=== PATIENT | female | born 1970 | race Caucasian/White ===

== ENCOUNTER 2017-02-14 11:53 | Emergency (ER) | payer SELFPAY ==
[2017-02-14] MEDS ORDERED: OXYCODONE-ACETAMINOPHEN 5-325 MG TABLET PO ONE (14:44)
--- NOTE | 2017-02-14 14:47 | ER Document Report ---
HPI - HPI Patient complains to provider of: left hip pain Onset: Last week Onset/Duration: Persistent Quality of pain: Sharp Pain Level: 5 Context: Patient states that she stepped off of a ladder wrong last week injury her left hip. Patient complains of persistent left hip pain since then. Associated Symptoms: Other - Left hip pain Exacerbated by: Standing, Movement, Walking Relieved by: Denies Similar symptoms previously: No Recently seen / treated by doctor: No - ROS ROS below otherwise negative: Yes Systems Reviewed and Negative: Yes All other systems reviewed and negative - CONSTITUTIONAL Constitutional: DENIES: Fever, Chills - NEURO Neurology: DENIES: Weakness - GASTROINTESTINAL Gastrointestinal: DENIES: Nausea - REPRODUCTIVE Reproductive: DENIES: : - MUSCULOSKELETAL Musculoskeletal: REPORTS: Extremity pain. DENIES: Back Pain, Neck Pain - DERM Skin Color: Normal Skin Problems: None Past Medical History - General Information source: Patient - Social History Smoking Status: Current Every Day Smoker Frequency of alcohol use: None Drug Abuse: Marijuana Occupation: cleaning Family History: Reviewed & Not Pertinent, DM - Mother Patient has suicidal ideation: No Patient has homicidal ideation: No - Past Medical History Cardiac Medical History: Reports: Hx Hypertension Pulmonary Medical History: Reports: Hx COPD Renal/ Medical History: Denies: Hx Peritoneal Dialysis GI Medical History: Reports: Hx Hiatal Hernia, Hx Ulcer Musculoskeltal Medical History: Reports Hx Arthritis, Reports Hx Fibromyalgia Psychiatric Medical History: Reports: Hx Anxiety, Hx Bipolar Disorder, Hx Depression Past Surgical History: Reports: Hx Section, Hx Cholecystectomy - Immunizations Hx Diphtheria, Pertussis, Tetanus Vaccination: Yes Hx Pneumococcal Vaccination: 07/17/15 Vertical Provider Document - CONSTITUTIONAL Agree With Documented VS: Yes Exam Limitations: No Limitations General Appearance: WD/WN, No Apparent Distress - INFECTION CONTROL TRAVEL OUTSIDE OF THE [place] IN LAST 30 DAYS: No - HEENT HEENT: Atraumatic, Normocephalic - NECK Neck: Normal Inspection - RESPIRATORY Respiratory: Breath Sounds Normal, No Respiratory Distress O2 Sat by Pulse Oximetry: 100 - CARDIOVASCULAR Cardiovascular: Regular Rate, Regular Rhythm - BACK Back: Normal Inspection. negative: CVA Tenderness-Right, CVA Tenderness-Left - MUSCULOSKELETAL/EXTREMETIES Musculoskeletal/Extremeties: Tender - Left hip tenderness with range of motion, tenderness increases with flexion, abduction. negative: Eccymosis - NEURO Level of Consciousness: Awake, Alert, Appropriate Motor/Sensory: No Motor Deficit, No Sensory Deficit - DERM Integumentary: Warm, Dry, No Rash Course - Vital Signs Vital signs: Temp Pulse Resp BP Pulse Ox 97.6 F 70 16 150/93 H 100 02/14/17 12:50 02/14/17 12:50 02/14/17 12:50 02/14/17 12:50 02/14/17 12:50 - Diagnostic Test Radiology reviewed: Reports reviewed Discharge - Discharge Clinical Impression: Elevated blood pressure reading Hip sprain Qualifiers: Encounter type: initial encounter Laterality: left Qualified Code(s): S73.102A - Unspecified sprain of left hip, initial encounter Condition: Stable Disposition: HOME, SELF-CARE Instructions: Ice Packs ([facility]), Warm Packs ([facility]), Oral Narcotic Medication ([facility]) , Use of Crutches ([facility]), Sprain ([facility]) Additional Instructions: Return immediately for any new or worsening symptoms Your blood pressure was elevated today, recheck with your primary doctor in 1-2 days to have this reevaluated Follow-up with an orthopedic Dr. for further evaluation of hip pain. Weightbearing as tolerated Prescriptions: Oxycodone HCl/Acetaminophen [Percocet 5-325 mg Tablet] 1 tab PO ASDIR PRN #15 tablet PRN Reason: Forms: Return to Work Referrals: [facility] [Provider Group] - Follow up tomorrow [facility] [Provider Group] - Follow up tomorrow
[2017-02-14 17:17] VITALS: BP 155/85
== END 2017-02-14 17:19 | disposition home or self-care (01) ==
LOC: ER 11:53
DX: S73.102A Unspecified sprain of left hip, initial encounter (principal); M25.552 Pain in left hip; X58.XXXA Exposure to other specified factors, initial encounter; I10 Essential (primary) hypertension; F17.200 Nicotine dependence, unspecified, uncomplicated; J44.9 Chronic obstructive pulmonary disease, unspecified
CPT/HCPCS: 81025; 99283

== ENCOUNTER 2017-09-02 02:36 | Emergency (ER) | payer SELFPAY ==
--- NOTE | 2017-09-02 02:51 | ER Document Report ---
ED General - General Mode of Arrival: Ambulatory Information source: Patient, Relative TRAVEL OUTSIDE OF THE [place] IN LAST 30 DAYS: No <SARAN COY - Last Filed: 09/02/17 04:44> <GIA SUAREZ - Last Filed: 09/02/17 05:38> - General Chief Complaint: Laceration Stated Complaint: LEFT ARM INJURY Time Seen by Provider: 09/02/17 02:39 - HPI Notes: 47-year-old female presents with laceration to her dorsal left forearm. She is a self-declared "cutter". She states she was very angry but would not elaborate further and therefore cut her arm. She does become tearful and states that she is dealing with severe pain issues mostly related to her fibromyalgia. She denies suicidal ideation but when I asked her daughter if she feels safe with her being at home the daughter states she is not safe and is concerned about this. Patient denies any distal numbness or tingling. Denies any other acute problem. Does admit to alcohol use. (SARAN COY) - Related Data Allergies/Adverse Reactions: cephalexin Allergy (Severe, Verified 02/14/17 12:48) Hives sulfamethoxazole [From Septra] Allergy (Verified 02/14/17 12:48) trimethoprim [From Junra] Allergy (Verified 02/14/17 12:48) Past Medical History - Social History Smoking Status: Current Every Day Smoker Family History: Reviewed & Not Pertinent, DM - Mother - Past Medical History Cardiac Medical History: Reports: Hx Hypertension Pulmonary Medical History: Reports: Hx COPD Renal/ Medical History: Denies: Hx Peritoneal Dialysis GI Medical History: Reports: Hx Hiatal Hernia, Hx Ulcer Musculoskeltal Medical History: Reports Hx Arthritis, Reports Hx Fibromyalgia Psychiatric Medical History: Reports: Hx Anxiety, Hx Bipolar Disorder, Hx Depression Past Surgical History: Reports: Hx Section, Hx Cholecystectomy - Immunizations Hx Diphtheria, Pertussis, Tetanus Vaccination: Yes Hx Pneumococcal Vaccination: 07/17/15 <SARAN COY - Last Filed: 09/02/17 04:44> Review of Systems - Review of Systems -: Yes All other systems reviewed and negative - Reports generalized pain. No specific chest pain or acute dyspnea. <SARAN COY - Last Filed: 09/02/17 04:44> Physical Exam <SARAN COY - Last Filed: 09/02/17 04:44> <GIA SUAREZ - Last Filed: 09/02/17 05:38> - Notes Notes: GENERAL: VS as per nursing doc. Well-appearing, well-nourished somewhat unkempt. Appears somewhat agitated with pressured speech. Grossly appears intoxicated. Odor of tobacco products noted HEAD: Atraumatic, normocephalic EYES: Pupils equal round and reactive to light, extraocular movements intact with fatiguing horizontal nystagmus, sclera anicteric, no conjunctival injection or discharge. ENT: Nares patent, oropharynx clear without exudates, moist mucous membranes. NECK: Normal range of motion, supple without lymphadenopathy. LUNGS: Breath sounds decreased bilaterally coarse with mild wheezing HEART: Tachycardic but regular without murmurs. Peripheral pulses equal. ABDOMEN: Soft, non-tender. BACK: Normal to inspection EXTREMITIES: Normal appearance without edema. There is a laceration as described below to the dorsal left forearm. Neurovascularly intact distally. NEUROLOGICAL: Cranial nerves grossly intact. Normal speech. Normal sensory and motor exams. No gross cerebellar abnormalities. PSYCH: Oriented 3. Directable but agitated with increased psychomotor agitation. No evidence of hallucinations or delusions. No reported suicidal or homicidal ideation. Speech is pressured. Slight flight of ideas requiring redirection. Becomes tearful during interview talking about how she is tired of hurting and her chronic medical conditions. SKIN: Warm, dry. 5 cm linear laceration over the mid to distal left forearm. There is mild separation. Neurovascularly intact distally. No active bleeding. (SARAN COY) Course <SARAN COY - Last Filed: 09/02/17 04:44> <RIMAGIA LONG - Last Filed: 09/02/17 05:38> - Re-evaluation Re-evalutation: 09/02/17 04:08 I was informed it appeared the patient had dumped her urine out and had gotten water for her urine specimen. UA findings appear consistent with that with the specific gravity 1.001. 09/02/17 04:44 Patient became very belligerent and threatening demanding to leave. With her acts as well her verbiage of being tired of life somewhat insinuating she would rather be , she will require a psychiatric evaluation and did require chemical sedation. (SARAN COY) - Laboratory Laboratory results interpreted by me: 09/02/17 03:11 Urine Blood SMALL H Procedures - Laceration/Wound Repair left forearm Wound length (cm): 4 Wound's Depth, Shape: Linear Laceration pre-procedure: Sterile PPE donned, Shur-Clens applied - surgical cleanser Volume Anesthetic (mLs): 3 Wound explored: Clean Irrigated w/ Saline (mLs): 40 Wound Repaired With: Sutures Suture Size/Type: 4:0, Nylon Number of Sutures: 6 Layer Closure?: No Post-procedure NV exam normal: Yes Complications: No <GIA SUAREZ - Last Filed: 09/02/17 05:38>
[2017-09-02] MEDS ORDERED: LIDOCAINE 1% INJ-PF (10 MG/ML) 30 ML SDV INJ ONE (02:53)
[2017-09-02] MEDS ORDERED: ZIPRASIDONE MESYLATE INJ/PF 20 MG SDV IM PRN (03:08)
[2017-09-02 03:29] LABS: APPEARANCE,URINE CLEAR; BILIRUBIN,URINE NEGATIVE (NEGATIVE); GLUCOSE, URINE NEGATIVE (NEGATIVE); KETONES,URINE NEGATIVE (NEGATIVE); LEUKOCYTE ESTERASE,URINE NEGATIVE (NEGATIVE); NITRITE,URINE NEGATIVE (NEGATIVE); PROTEIN,URINE NEGATIVE (NEGATIVE); URINE SPECIFIC GRAVITY 1.001; UROBILINOGEN,URINE NEGATIVE mg/dL (<2.0)
[2017-09-02 03:43] LABS: URINE BARBITURATES SCREEN NEGATIVE; URINE METHADONE SCREEN NEGATIVE; URINE OPIATES LOW NEGATIVE; URINE PHENCYCLIDINE SCREEN NEGATIVE
[2017-09-02 08:28] LABS: ABSOLUTE BASOPHILS # (AUTO) 0.1 10^3/uL (0.0-0.2); ABSOLUTE EOSINOPHILS # (AUTO) 0.1 10^3/uL (0.0-0.6); ABSOLUTE LYMPHOCYTES (AUTO) 3.7 10^3/uL (0.5-4.7); ABSOLUTE MONOCYTES (AUTO) 0.2 10^3/uL (0.1-1.4); ABSOLUTE NEUT (AUTO) 5.1 10^3/uL (1.7-8.2); BASOPHILS % (AUTO) 1.1 % (0-2); EOSINOPHILS % (AUTO) 1.6 % (0-6); HEMOGLOBIN 14.3 g/dL (12.0-15.5); HGB HCT DIFFERENCE 1.9; LYMPHOCYTES % (AUTO) 39.8 % (13-45); MEAN CORPUSCULAR HEMOGLOBIN 31.1 pg (27.0-33.4); MEAN CORPUSCULAR HGB CONC 34.8 g/dL (32.0-36.0); MEAN CORPUSCULAR VOLUME 89 fl (80-97); MONOCYTES % (AUTO) 2.6 % (3-13); RED BLOOD COUNT 4.59 10^6/uL (3.72-5.28); RED CELL DISTRIBUTION WIDTH 13.4 % (11.5-14.0); SEGMENTED NEUTROPHILS % (AUTO) 54.9 % (42-78); WHITE BLOOD COUNT 9.3 10^3/uL (4.0-10.5)
[2017-09-02 08:57] LABS: ALANINE AMINOTRANSFERASE 36 U/L (9-52); ALBUMIN 4.3 g/dL (3.5-5.0); ALCOHOL 99 mg/dL (NONE DETECTED); ALKALINE PHOSPHATASE 78 U/L (38-126); ANION GAP 19 (5-19); ASPARTATE AMINO TRANSFERASE 20 U/L (14-36); BILIRUBIN,DIRECT 0.3 mg/dL (0.0-0.4); BILIRUBIN,TOTAL 0.3 mg/dL (0.2-1.3); BLOOD UREA NITROGEN 7 mg/dL (7-20); CALCIUM 9.7 mg/dL (8.4-10.2); CARBON DIOXIDE 22 mmol/L (22-30); CHLORIDE 106 mmol/L (98-107); CREATININE RESULT 0.56 mg/dL (0.52-1.25); GLUCOSE 114 mg/dL (75-110); POTASSIUM 3.7 mmol/L (3.6-5.0); SODIUM 147.4 mmol/L (137-145); TOTAL PROTEIN 6.6 g/dL (6.3-8.2)
--- NOTE | 2017-09-02 09:38 | EKG REPORT ---
SEVERITY:- BORDERLINE ECG - SINUS RHYTHM BORDERLINE LEFT AXIS DEVIATION BORDERLINE T ABNORMALITIES, ANTERIOR LEADS : Confirmed by: Dimas Torres 02-Sep-2017 09:38:32
--- NOTE | 2017-09-02 10:16 | ER Document Report ---
Doctor's Note Notes: 09/02/17 10:14 Rounds: Chart reviewed and patient interviewed. Patient has been evaluated for suicidal thoughts. She has a self-inflicted laceration on her left forearm that has been repaired with nylon suture. Patient's labs were positive for alcohol of 99. Vital signs were normal initially, but then a low blood pressure of 83/42 around 6 AM. Repeat now shows a systolic of 140. Never tachycardic. Patient appears to be medically stable for transfer or discharge. Brigid Rojas MD
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
[2017-09-02 11:50] VITALS: BP 123/90
== END 2017-09-02 11:50 | disposition home or self-care (01) ==
LOC: ER 02:36
PROC: 0HQEXZZ Repair Left Lower Arm Skin, External Approach (ICD-10-PCS; principal; 2017-09-02)
DX: S51.812A Laceration without foreign body of left forearm, initial encounter (principal); Y28.9XXA Contact with unspecified sharp object, undetermined intent, initial encounter; F10.920 Alcohol use, unspecified with intoxication, uncomplicated; F31.30 Bipolar disorder, current episode depressed, mild or moderate severity, unspecified
CPT/HCPCS: 36415; 80053; 80307; 81001; 84703; 85025; 93005; 93010; 99284

== ENCOUNTER 2017-10-11 20:29 | Emergency (ER) | payer SELFPAY ==
[2017-10-11] MEDS ORDERED: OXYCODONE-ACETAMINOPHEN 5-325 MG TABLET PO ONE (20:44)
--- NOTE | 2017-10-11 20:44 | ER Document Report ---
ED General - General Chief Complaint: Rib Pain Stated Complaint: LEFT SIDE PAIN Time Seen by Provider: 10/11/17 20:41 Notes: Patient is a 47-year-old female who presents emergency department complaining of right index finger pain and left chest wall pain after a fall 2 days ago. Patient states that she lost her balance and landed on her right hand with pain was significantly in the distal phalanx of the right middle finger. She admits to full range of motion of the finger except for the distal phalanx and denies any pain in her wrist. She denies any numbness or tingling in the finger. She also admits to left chest wall pain with pain right under her left breast along her bra line. She admits to pain with deep inhalation, denies any productive cough. TRAVEL OUTSIDE OF THE [place] IN LAST 30 DAYS: No - Related Data Allergies/Adverse Reactions: cephalexin Allergy (Severe, Verified 02/14/17 12:48) Hives sulfamethoxazole [From Junra] Allergy (Verified 02/14/17 12:48) trimethoprim [From Junra] Allergy (Verified 02/14/17 12:48) Past Medical History - Social History Smoking Status: Current Every Day Smoker Family History: Reviewed & Not Pertinent, DM - Mother - Past Medical History Cardiac Medical History: Reports: Hx Hypertension Pulmonary Medical History: Reports: Hx COPD Renal/ Medical History: Denies: Hx Peritoneal Dialysis GI Medical History: Reports: Hx Hiatal Hernia, Hx Ulcer Musculoskeltal Medical History: Reports Hx Arthritis, Reports Hx Fibromyalgia Psychiatric Medical History: Reports: Hx Anxiety, Hx Bipolar Disorder, Hx Depression Past Surgical History: Reports: Hx Section, Hx Cholecystectomy - Immunizations Hx Diphtheria, Pertussis, Tetanus Vaccination: Yes Hx Pneumococcal Vaccination: 07/17/15 Review of Systems - Review of Systems Constitutional: No symptoms reported Cardiovascular: No symptoms reported Respiratory: See HPI Musculoskeletal: See HPI Skin: See HPI -: Yes All other systems reviewed and negative Physical Exam - Vital signs Vitals: Temp Pulse Resp BP Pulse Ox 97.5 F 76 20 153/98 H 100 10/11/17 20:35 10/11/17 20:35 10/11/17 20:35 10/11/17 20:35 10/11/17 20:35 - Notes Notes: PHYSICAL EXAMINATION: GENERAL: Well-appearing, well-nourished and in no acute distress. GCS 15 HEAD: Atraumatic, normocephalic. NECK: Normal range of motion, supple without lymphadenopathy. Trachea midline LUNGS: Breath sounds clear to auscultation bilaterally and equal. No wheezes rales or rhonchi. Chest wall tenderness underneath the left breast without palpable deformity, crepitus HEART: Regular rate and rhythm without murmurs. Pulses intact all throughout. ABDOMEN: Soft, nontender, nondistended abdomen. No guarding, no rebound. No masses appreciated. Musculoskeletal: ecchymosis and swelling of the distal phalanx of the right middle finger. normal range of motion, no pitting or edema. No cyanosis. Hip non tender, stable. NEUROLOGICAL: Cranial nerves grossly intact. Normal speech, normal gait. Normal sensory, motor, and reflex exams. PSYCH: Normal mood, normal affect. SKIN: Warm, No active bleeding Course - Re-evaluation Re-evalutation: 10/11/17 21:32 Patient is a 47-year-old female is hemodynamically stable, no acute distress. Patient does show evidence of the distal interphalangeal fracture of the right middle finger. This was placed in a splint. Regarding patient's chest wall pain there is no evidence of displaced rib fractures on x-ray. Patient educated on incentive spirometry to prevent pneumonia and otherwise patient sent home with some pain medication. Patient to follow-up with primary care and orthopedics. - Vital Signs Vital signs: Temp Pulse Resp BP Pulse Ox 97.5 F 69 16 147/75 H 96 10/11/17 20:35 10/11/17 21:51 10/11/17 21:51 10/11/17 21:51 10/11/17 21:51 - Diagnostic Test Radiology reviewed: Image reviewed, Reports reviewed Discharge - Discharge Clinical Impression: Chest wall pain Phalanx, distal fracture of finger Qualifiers: Encounter type: initial encounter Finger: middle finger Fracture type: closed Fracture alignment: displaced Laterality: right Qualified Code(s): S62.632A - Displaced fracture of distal phalanx of right middle finger, initial encounter for closed fracture Condition: Good Disposition: HOME, SELF-CARE Instructions: Anti-Inflammatory Medication ([facility]), Chest Wall Pain ([facility]), Oral Narcotic Medication ([facility]), Tuft Fracture of the Finger ([facility]) Additional Instructions: How to use the incentive spirometer 1.Sit on the edge of your bed if possible, or sit up as far as you can in bed. 2.Hold the incentive spirometer in an upright position. 3.Place the mouthpiece in your mouth and seal your lips tightly around it. 4.Breathe in slowly and as deeply as possible. Notice the yellow piston rising toward the top of the column. The yellow indicator should reach the blue outlined area. 5.Hold your breath as long as possible. Then exhale slowly and allow the piston to fall to the bottom of the column. 6.Rest for a few seconds and repeat steps one to five at least 10 times every hour. 7.Position the yellow indicator on the left side of the spirometer to show your best effort. Use the indicator as a goal to work toward during each slow deep breath. 8.After each set of 10 deep breaths, cough to be sure your lungs are clear. If you have an incision, support your incision when coughing by placing a pillow firmly against it. 9.Once you are able to get out of bed safely, take frequent walks and practice the cough. Prescriptions: Oxycodone HCl/Acetaminophen [Percocet 5-325 mg Tablet] 1 - 2 tab PO Q4H PRN #15 tablet PRN Reason: Referrals: [facility] [Provider Group] - Follow up as needed [facility] [NO LOCAL MD] - Follow up as needed
--- NOTE | 2017-10-11 21:15 | RADIOLOGY REPORT (SQ) ---
EXAM DESCRIPTION: FINGER RIGHT COMPLETED DATE/TIME: 10/11/2017 9:02 pm REASON FOR STUDY: 3RD DIGIT pain, fall COMPARISON: None. NUMBER OF VIEWS: Three views. TECHNIQUE: AP, lateral, and oblique images acquired of the right third finger. LIMITATIONS: None. FINDINGS: MINERALIZATION: Normal. BONES: Minimally displaced intra-articular fracture of the distal phalanx of the right 3rd digit. No joint dislocation. No worrisome bone lesions. SOFT TISSUES: Mild soft tissue swelling. No foreign body. OTHER: No other significant finding. IMPRESSION: Minimally displaced intra-articular fracture of the distal phalanx of the right 3rd digi t. COMMENT: SITE OF TRAUMA/COMPLAINT MARKED/STAMP COMPLETED: Yes TECHNICAL DOCUMENTATION: JOB ID: [id number] [place]-72 2010 [employer]- All Rights Reserved
--- NOTE | 2017-10-11 21:18 | RADIOLOGY REPORT (SQ) ---
EXAM DESCRIPTION: RIBS LEFT W/PA CHEST COMPLETED DATE/TIME: 10/11/2017 9:02 pm REASON FOR STUDY: fall, rib pain COMPARISON: None. TECHNIQUE: Frontal view of the chest and additional views of the left ribs acquired. NUMBER OF VIEWS: 3 LIMITATIONS: None. FINDINGS: FRONTAL CXR: No pneumothorax. No pleural effusion. Minimal left basilar subsegmental ate lectasis. No effusion. RIBS: No displaced rib fractures. No lytic or blastic bony lesions. OTHER: No other significant finding. IMPRESSION: NO PNEUMOTHORAX. NO DISPLACED RIB FRACTURES. COMMENT: SITE OF TRAUMA/COMPLAINT MARKED/STAMP COMPLETED: No TECHNICAL DOCUMENTATION: JOB ID: [id number] [place]-72 2010 [employer]- All Rights Reserved
[2017-10-11 21:59] VITALS: BP 147/75
== END 2017-10-11 21:59 | disposition home or self-care (01) ==
LOC: ER 20:29
DX: S62.632A Displaced fracture of distal phalanx of right middle finger, initial encounter for closed fracture (principal); R07.89 Other chest pain; R07.81 Pleurodynia; M79.644 Pain in right finger(s); F17.200 Nicotine dependence, unspecified, uncomplicated; W19.XXXA Unspecified fall, initial encounter
CPT/HCPCS: 99283

== ENCOUNTER 2018-01-18 06:03 | Emergency (ER) | payer SELFPAY ==
[2018-01-18] MEDS ORDERED: BACITRACIN ZINC OINTMENT 15 GM TP ONE (06:11)
--- NOTE | 2018-01-18 06:11 | ER Document Report ---
ED General - General Stated Complaint: PSYCH EVAL Notes: 47-year-old female with history of chronic self cutting presents having cut herself. She says that she has been feeling anxious and stressed out, not taking her Xanax and Prozac recently and it came to ahead this morning when she cut herself up to 40 times on all 4 extremities. She says that her right pinky finger is the only when the needs to be repaired. Her tetanus is up-to-date. She currently denies suicidal ideation homicidal ideation, has prescriptions, outpatient psych providers, and a support system. She does not want to see psychiatry. She is not on IVC paperwork. TRAVEL OUTSIDE OF THE [place] IN LAST 30 DAYS: No - Related Data Allergies/Adverse Reactions: cephalexin Allergy (Severe, Verified 02/14/17 12:48) Hives sulfamethoxazole [From Septra] Allergy (Verified 02/14/17 12:48) trimethoprim [From Junra] Allergy (Verified 02/14/17 12:48) Past Medical History - Social History Smoking Status: Current Every Day Smoker Family History: Reviewed & Not Pertinent, DM - Mother - Past Medical History Cardiac Medical History: Reports: Hx Hypertension Pulmonary Medical History: Reports: Hx COPD Renal/ Medical History: Denies: Hx Peritoneal Dialysis GI Medical History: Reports: Hx Hiatal Hernia, Hx Ulcer Musculoskeltal Medical History: Reports Hx Arthritis, Reports Hx Fibromyalgia Psychiatric Medical History: Reports: Hx Anxiety, Hx Bipolar Disorder, Hx Depression Past Surgical History: Reports: Hx Section, Hx Cholecystectomy - Immunizations Hx Diphtheria, Pertussis, Tetanus Vaccination: Yes Hx Pneumococcal Vaccination: 07/17/15 Review of Systems - Review of Systems Notes: REVIEW OF SYSTEMS GEN: Denies fever, chills, weight loss ENT: Denies sore throat, nasal discharge, ear pain EYES: Denies blurry vision, eye pain, discharge CV: Denies chest pain, palpitations, edema RESP: Denies cough, shortness of breath, wheezing GI: Denies abdominal pain, nausea, vomiting, diarrhea MSK: Denies joint pain/swelling, edema, SKIN: Denies rash, skin lesions. Cutting. LYMPH: Denies swollen glands/lymph nodes NEURO: Denies headache, focal weakness or numbness, dizziness PSYCH: Denies depression, suicidal or homicidal ideation. Anxiety. PHYSICAL EXAMINATION General: No acute distress, well-nourished Head: Atraumatic, normocephalic ENT: Mouth normal, oropharynx moist, no exudates or tonsillar enlargement Eyes: Conjunctiva normal, pupils equal, lids normal Neck: No JVD, supple, no guarding CVS: Normal rate, regular rhythm, no murmurs Resp: No resp distress, equal and normal breath sounds bilaterally GI: Nondistended, soft, no tenderness to palpation, no rebound or guarding Ext: No deformities, no edema, normal range of motion in upper and lower ext Back: No CVA or midline TTP Skin: No rash, warm. Innumerable superficial linear lacerations on the volar surface of bilateral forearms and the inner surface of both thighs and calves. None are past the epidermis and all bleeding is controlled. There is a 8 mm laceration in the sagittal plane affecting the lateral pad of the right pinky finger. Lymphatic: No lymphadeopathy noted Neuro: Awake, alert. Face symmetric. GCS 15. Course - Re-evaluation Re-evalutation: 01/18/18 06:13 Patient presents with superficial lacerations in the setting of frustration. She is a chronic cutter and this is not her normal reaction to stress. She does not want psychiatric consult and does not currently meet IVC criteria. She has a support system, medications, and outpatient provider. Superficial lacerations to be treated with wound care including bacitracin. Tetanus up-to- date. Picky laceration was irrigated in the sink, and closed with Dermabond and Steri-Strips. Patient will follow up with her psych provider. I have discussed with the patient there likely diagnosis, aftercare plan, follow -up plans and my usual and customary return precautions. They verbalized understanding of this. Procedures - Laceration/Wound Repair Right Distal 5th digit Time completed: 06:19 Wound length (cm): 8 Wound's Depth, Shape: Superficial Laceration pre-procedure: Other Anesthetic type: Other Wound explored: No foreign body removed Irrigated w/ Saline (mLs): 0 - Irrigated inSync for at least 3 minutes Wound Repaired With: Steri-strips, Dermabond - 3 layers of Dermabond applied Discharge - Discharge Clinical Impression: Deliberate self-cutting Laceration of finger Qualifiers: Encounter type: initial encounter Finger: little finger Damage to nail status: unspecified Foreign body presence: without foreign body Laterality: right Qualified Code(s): S61.216A - Laceration without foreign body of right little finger without damage to nail, initial encounter Condition: Good Disposition: HOME, SELF-CARE Instructions: Antibiotic Ointment Protection ([facility]), Laceration Care ([facility]) Additional Instructions: If you have any psychiatric needs or feel suicidal at all in any way please return to the emergency department immediately. Please refill and start taking her psychiatric meds and follow-up with her mental health provider
[2018-01-18 06:41] VITALS: BP 135/97
== END 2018-01-18 06:35 | disposition home or self-care (01) ==
LOC: ER 06:03
PROC: 0HQFXZZ Repair Right Hand Skin, External Approach (ICD-10-PCS; principal; 2018-01-18)
DX: S61.216A Laceration without foreign body of right little finger without damage to nail, initial encounter (principal); S41.112A Laceration without foreign body of left upper arm, initial encounter; S41.111A Laceration without foreign body of right upper arm, initial encounter; S81.812A Laceration without foreign body, left lower leg, initial encounter; S81.811A Laceration without foreign body, right lower leg, initial encounter; X78.9XXA Intentional self-harm by unspecified sharp object, initial encounter; F17.200 Nicotine dependence, unspecified, uncomplicated; I10 Essential (primary) hypertension; J44.9 Chronic obstructive pulmonary disease, unspecified; Z88.3 Allergy status to other anti-infective agents; Z90.49 Acquired absence of other specified parts of digestive tract
CPT/HCPCS: 99283; J3490

== ENCOUNTER 2018-04-25 16:06 | Emergency (ER) | payer OTHER ==
[2018-04-25 16:13] VITALS: BP 165/103
[2018-04-25] MEDS ORDERED: OXYCODONE-ACETAMINOPHEN 5-325 MG TABLET PO ONE (16:37)
--- NOTE | 2018-04-25 16:43 | ER Document Report ---
HPI - HPI Patient complains to provider of: Lateral wrist pain Onset: Other - 4 days Onset/Duration: Persistent Quality of pain: Sharp Pain Level: 5 Context: Patient presents complaining of bilateral wrist pain for the past 4 days. Patient states symptoms started after starting a new job 5 days ago. 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 Patient denies any traumatic injury. Patient states left wrist pain is worse on the right. Associated Symptoms: Other - Bilateral wrist pain Exacerbated by: Movement Relieved by: Remaining still Similar symptoms previously: Yes Recently seen / treated by doctor: No - ROS ROS below otherwise negative: Yes Systems Reviewed and Negative: Yes All other systems reviewed and negative - CONSTITUTIONAL Constitutional: DENIES: Fever - NEURO Neurology: DENIES: Weakness - REPRODUCTIVE Reproductive: DENIES: : - MUSCULOSKELETAL Musculoskeletal: REPORTS: Extremity pain, Swelling - DERM Skin Color: Normal Skin Problems: None Past Medical History - General Information source: Patient - Social History Smoking Status: Current Every Day Smoker Smoking Education Provided: Yes Frequency of alcohol use: Occasional Drug Abuse: Marijuana Occupation: [employer] Lives with: Family Family History: Reviewed & Not Pertinent, DM - Mother - Past Medical History Cardiac Medical History: Reports: Hx Hypertension Pulmonary Medical History: Reports: Hx COPD Renal/ Medical History: Denies: Hx Peritoneal Dialysis GI Medical History: Reports: Hx Hiatal Hernia, Hx Ulcer Musculoskeltal Medical History: Reports Hx Arthritis, Reports Hx Fibromyalgia Psychiatric Medical History: Reports: Hx Anxiety, Hx Bipolar Disorder, Hx Depression Past Surgical History: Reports: Hx Section, Hx Cholecystectomy - Immunizations Hx Diphtheria, Pertussis, Tetanus Vaccination: Yes Hx Pneumococcal Vaccination: 07/17/15 Vertical Provider Document - CONSTITUTIONAL Agree With Documented VS: Yes Exam Limitations: No Limitations General Appearance: WD/WN, No Apparent Distress - INFECTION CONTROL TRAVEL OUTSIDE OF THE [place] IN LAST 30 DAYS: No - HEENT HEENT: Atraumatic, Normocephalic - NECK Neck: Normal Inspection - RESPIRATORY Respiratory: No Respiratory Distress - CARDIOVASCULAR Cardiovascular: Regular Rhythm Pulses: Normal: Radial - BACK Back: Normal Inspection - MUSCULOSKELETAL/EXTREMETIES Musculoskeletal/Extremeties: MAEW, Tender - Patient with bilateral generalized wrist tenderness, left worse than right, left wrist, normal skin color and temperature overlying joint. negative: Eccymosis Notes: Wrist tenderness increases with flexion and extension of the wrist. Pain improved when wrist is held in neutral position - NEURO Level of Consciousness: Awake, Alert, Appropriate Motor/Sensory: No Motor Deficit - DERM Integumentary: Warm, Dry, No Rash Course - Re-evaluation Re-evalutation: 04/25/18 16:38 No concern for septic joint. No concern for traumatic injury. Patient likely presents with symptoms worrisome for overuse injury given the onset of symptoms started almost immediately after starting a new job that had repetitive use of the upper extremities. - Vital Signs Vital signs: Temp Pulse Resp BP Pulse Ox 98.5 F 96 18 165/103 H 97 04/25/18 16:12 04/25/18 16:12 04/25/18 16:12 04/25/18 16:12 04/25/18 16:12 Procedures - Immobilization Left Wrist Pre-Proc Neuro Vasc Exam: Normal Immobilizer type: Cock-up Performed by: PCT Post-Proc Neuro Vasc Exam: Normal Alignment checked and good: Yes Right Wrist Pre-Proc Neuro Vasc Exam: Normal Immobilizer type: Cock-up Performed by: PCT Post-Proc Neuro Vasc Exam: Normal Alignment checked and good: Yes Discharge - Discharge Clinical Impression: Overuse injury, Bilateral wrist pain Condition: Stable Disposition: HOME, SELF-CARE Instructions: Anti-Inflammatory Medication ([facility]), Overuse Syndrome ([facility]), Temporary Splint ([facility]) Additional Instructions: Return immediately for any new or worsening symptoms Followup with your primary care provider, call tomorrow to make a followup appointment Avoid repetitive activities to the wrist to help with your pain symptoms Follow-up with orthopedics for any persistent pain or problems Prescriptions: Naproxen [Naprosyn 250 Nmg Tablet] 1 tab PO BID #14 tablet Tramadol HCl [Ultram 50 mg Tablet] 50 mg PO ASDIR PRN #8 tablet PRN Reason: Forms: Smoking Cessation Education Referrals: [facility] [Provider Group] - Follow up as needed
== END 2018-04-25 17:02 | disposition home or self-care (01) ==
LOC: ER 16:06
DX: T14.90XA Injury, unspecified, initial encounter (principal); M25.531 Pain in right wrist; M25.532 Pain in left wrist; X50.3XXA Overexertion from repetitive movements, initial encounter; Y93.G3 Activity, cooking and baking; Y99.0 Civilian activity done for income or pay
CPT/HCPCS: 99283; L3908 ×2

== ENCOUNTER 2018-08-04 09:34 | Emergency (ER) | payer SELFPAY ==
[2018-08-04] MEDS ORDERED: NORMAL SALINE 1000 ML 1,000 ML IV ONE (10:03)
[2018-08-04] MEDS ORDERED: FENTANYL CITRATE INJ/PF 100 MCG/2 ML AMPUL IV ONE (10:04)
[2018-08-04] MEDS ORDERED: MORPHINE SULFATE 10 MG/ML INJ IV ONE (11:48)
[2018-08-04 11:53] LABS: HEMATOCRIT 42.6 % (36.0-47.0); HEMOGLOBIN 14.9 g/dL (12.0-15.5); MEAN CORPUSCULAR HEMOGLOBIN 31.3 pg (27.0-33.4); MEAN CORPUSCULAR HGB CONC 35.1 g/dL (32.0-36.0); MEAN CORPUSCULAR VOLUME 89 fl (80-97); PLATELET COUNT 101 10^3/uL (150-450); RED BLOOD COUNT 4.77 10^6/uL (3.72-5.28); WHITE BLOOD COUNT 6.8 10^3/uL (4.0-10.5)
--- NOTE | 2018-08-04 11:55 | ER Document Report ---
ED General Pain - General Chief Complaint: Pain All Over Stated Complaint: BODY PAIN Time Seen by Provider: 08/04/18 09:48 Mode of Arrival: Wheelchair Information source: Patient, Relative TRAVEL OUTSIDE OF THE [place] IN LAST 30 DAYS: No - HPI Patient complains to provider of: myalgias Onset: Other - 48-year-old female with a past medical history of rheumatoid arthritis as well as hypertension and fibromyalgia that presents for evaluation of generalized muscle aches and joint pain which have developed over the last few days. She notes that she had what felt like some swelling in her left elbow as well as both knees and tightness in her wrists and hands which is worsened over the last 2 days. She is also had what seem like welts over the skin yesterday for which she took Benadryl that seems to help with the symptoms. Today she presented because she is in so much discomfort she was unable to get out of her bed normally. She endorses 1 day of low-grade fever, nothing is seemed to make her symptoms any better, time seems to be making them more she has not seen a doctor in a long time because she lost insurance coverage has been unable to obtain disability as she planned. - Related Data Allergies/Adverse Reactions: cephalexin Allergy (Severe, Verified 04/25/18 16:10) Hives sulfamethoxazole [From Septra] Allergy (Verified 04/25/18 16:10) trimethoprim [From Junra] Allergy (Verified 04/25/18 16:10) Past Medical History - General Information source: Patient - Social History Smoking Status: Current Every Day Smoker Frequency of alcohol use: Occasional Drug Abuse: Marijuana Family History: Reviewed & Not Pertinent, DM - Mother Patient has suicidal ideation: No Patient has homicidal ideation: No - Past Medical History Cardiac Medical History: Reports: Hx Hypertension Pulmonary Medical History: Reports: Hx COPD Renal/ Medical History: Denies: Hx Peritoneal Dialysis GI Medical History: Reports: Hx Hiatal Hernia, Hx Ulcer Musculoskeletal Medical History: Reports Hx Arthritis, Reports Hx Fibromyalgia Psychiatric Medical History: Reports: Hx Anxiety, Hx Bipolar Disorder, Hx Depression Past Surgical History: Reports: Hx Section, Hx Cholecystectomy - Immunizations Hx Diphtheria, Pertussis, Tetanus Vaccination: Yes Hx Pneumococcal Vaccination: 07/17/15 Review of Systems - Review of Systems -: Yes All other systems reviewed and negative Physical Exam - Vital signs Vitals: Temp Pulse BP Pulse Ox 98.1 F 79 128/83 H 96 08/04/18 09:43 08/04/18 09:43 08/04/18 09:43 08/04/18 09:43 - General General appearance: Alert In distress: Mild - HEENT Head: Normocephalic Eyes: Normal Conjunctiva: Normal Cornea: Normal Extraocular movements intact: Yes Eyelashes: Normal Pupils: PERRL - Respiratory Respiratory status: No respiratory distress Chest status: Nontender Breath sounds: Normal Chest palpation: Normal - Cardiovascular Rhythm: Regular Heart sounds: Normal auscultation Murmur: No - Abdominal Inspection: Normal Distension: No distension Tenderness: Nontender Organomegaly: No organomegaly - Back Back: Normal - Extremities General upper extremity: Normal inspection, Tender - Tenderness to palpation along all musculature, tenderness at the elbows intact range of motion, Normal ROM, Normal strength General lower extremity: Normal inspection, Tender - Tenderness in the bilateral lower extremities, normal range of motion, Normal ROM, Normal strength , Normal weight bearing - Neurological Neuro grossly intact: Yes Cognition: Normal Orientation: AAOx4 Mobile Coma Scale Eye Opening: Spontaneous [place] Coma Scale Verbal: Oriented [place] Coma Scale Motor: Obeys Commands [place] Coma Scale Total: 15 Speech: Normal Cranial nerves: Normal Cerebellar coordination: Normal Motor strength normal: LUE, RUE, LLE, RLE - Psychological Associated symptoms: Normal affect Course - Re-evaluation Re-evalutation: 08/04/18 13:26 Is a 48-year-old female with a history of rheumatoid arthritis as well as chronic pain and fibromyalgia that presents for diffuse myalgias as well as some welts and joint swelling over the last few days. She does endorse 1 day of low-grade fever at home. Patient has no other systemic signs of infection at this time, denies any runny nose cough headache shortness of breath chest pain abdominal pain diarrhea constipation dysuria. She has never had anything like this in the past, she has not been cared for in several months that she had a change in her insurance status. She denies any other health problems noted at this time. On examination she has diffuse tenderness over all muscle bodies, is nonfocal examination her joints are modestly inflamed however do not demonstrate any obvious effusion. No obvious overlying erythema. Will obtain CBC CMP ESR and CRP. Patient's CRP is a 6, her CBC and CMP are relatively unremarkable. Current plan will be for this patient did undergo treatment with a burst of corticosteroids with a taper. She will also be given a brief course of analgesia including Lyrica. She was encouraged to follow-up with her primary physician. She was also given return precautions. - Vital Signs Vital signs: Temp Pulse Resp BP Pulse Ox 98.1 F 79 128/83 H 96 08/04/18 09:43 08/04/18 09:43 08/04/18 09:43 08/04/18 09:43 - Laboratory Result Diagrams: 08/04/18 11:35 08/04/18 10:45 Discharge - Discharge Clinical Impression: Arthritis, Myalgia Joint pain Qualifiers: Joint pain location: unspecified Qualified Code(s): M25.50 - Pain in unspecified joint Condition: Good Disposition: HOME, SELF-CARE Instructions: Rheumatoid Arthritis ([facility]) Additional Instructions: You were seen today in the emergency department for the multiple multiple hurting joints. You had evaluation including a physical exam and blood work. Your given medication for your pain. You should use the steroid provided to you as directed by the taper. You should stop smoking. You should call a doctor and schedule an appointment in the coming week. Walk at least 30 minutes each day for the next several days. Return for worsening fevers or chills, numbness or weakness, chest pain or other symptoms. Prescriptions: Hydrocodone/Acetaminophen [[place] 5-325 mg Tablet] 1 tab PO Q12 #5 tablet Prednisone See Protocol PO DAILY #20 tablet Pregabalin [Lyrica 50 Mg Capsule] 50 mg PO DAILY #20 capsule Forms: Smoking Cessation Education, Elevated Blood Pressure
[2018-08-04 12:08] LABS: ALANINE AMINOTRANSFERASE 15 U/L (9-52); ALBUMIN 2.7 g/dL (3.5-5.0); ALKALINE PHOSPHATASE 54 U/L (38-126); ANION GAP 8 (5-19); ASPARTATE AMINO TRANSFERASE 11 U/L (14-36); BILIRUBIN,DIRECT 0.1 mg/dL (0.0-0.4); BILIRUBIN,TOTAL 0.7 mg/dL (0.2-1.3); BLOOD UREA NITROGEN 7 mg/dL (7-20); CARBON DIOXIDE 26 mmol/L (22-30); CHLORIDE 101 mmol/L (98-107); GLUCOSE 96 mg/dL (75-110); POTASSIUM 3.1 mmol/L (3.6-5.0); SODIUM 134.5 mmol/L (137-145)
[2018-08-04 12:16] LABS: ABSOLUTE LYMPHOCYTES# (MANUAL) 1.8 10^3/uL (0.5-4.7); ABSOLUTE MONOCYTES # (MANUAL) 0.1 10^3/uL (0.1-1.4); BASOPHILS % (MANUAL) 0 % (0-2); EOSINOPHILS % (MANUAL) 0 % (0-6); LYMPHOCYTES % (MANUAL) 17 % (13-45); MONOCYTES % (MANUAL) 1 % (3-13); SEGMENTED NEUTROPHILS % (MAN) 73 % (42-78); TOTAL CELLS COUNTED 100
[2018-08-04 12:19] LABS: PLATELET COMMENT DECREASED; RBC MORPHOLOGY COMMENT NORMO-CYTIC/CHROMIC
[2018-08-04 12:25] LABS: CREATINE KINASE < 20 U/L (30-135)
[2018-08-04 12:29] LABS: ERYTHROCYTE SEDIMENTATION RATE 6 mm/hr (0-20)
[2018-08-04] MEDS ORDERED: METHYLPREDNISOLONE INJ 125 MG/2 ML SDV IV ONE (12:52)
[2018-08-04 14:59] VITALS: BP 137/75
== END 2018-08-04 14:30 | disposition home or self-care (01) ==
LOC: ER 09:34
DX: M06.9 Rheumatoid arthritis, unspecified (principal); M79.10 Myalgia, unspecified site; I10 Essential (primary) hypertension; F17.200 Nicotine dependence, unspecified, uncomplicated; J44.9 Chronic obstructive pulmonary disease, unspecified; F12.10 Cannabis abuse, uncomplicated; Z88.1 Allergy status to other antibiotic agents
CPT/HCPCS: 99284; 96361; 96374; 96375; 36415; 87040; 82550; 85025; 85652; 80053; J3010; J2930; J2270; J7030

== ENCOUNTER 2018-08-15 08:53 | Emergency (ER) | payer SELFPAY ==
[2018-08-15] MEDS ORDERED: ONDANSETRON HCL INJ/PF 4 MG/2 ML SDV IV ONE (09:13)
[2018-08-15] MEDS ORDERED: FENTANYL CITRATE INJ/PF 100 MCG/2 ML AMPUL IV ONE (09:13)
--- NOTE | 2018-08-15 09:17 | ER Document Report ---
ED GI/ - General Chief Complaint: Possible Kidney Stone Stated Complaint: FLANK PAIN Time Seen by Provider: 08/15/18 09:13 Notes: RME Note 48 years old female presents today with sharp pain over the left flank radiating to the groin, woke up at 3 AM. Since then she has taken 12 tablets of ibuprofen without any relief. Presents today with severe pain. Nauseous no vomiting. No dysuria or hematuria. Denies any diarrhea. Denies any fever chills or other constitutional symptoms.. Previous history of kidney stone. On examination seems to be in severe flank pain. TRAVEL OUTSIDE OF THE [place] IN LAST 30 DAYS: No - Related Data Allergies/Adverse Reactions: cephalexin Allergy (Severe, Verified 04/25/18 16:10) Hives sulfamethoxazole [From Septra] Allergy (Verified 04/25/18 16:10) trimethoprim [From Junra] Allergy (Verified 04/25/18 16:10) Past Medical History - Social History Smoking Status: Current Every Day Smoker Chew tobacco use (# tins/day): No Frequency of alcohol use: Occasional Drug Abuse: Marijuana Family History: Reviewed & Not Pertinent, DM - Mother Patient has suicidal ideation: No Patient has homicidal ideation: No - Past Medical History Cardiac Medical History: Reports: Hx Hypertension Pulmonary Medical History: Reports: Hx COPD Renal/ Medical History: Denies: Hx Peritoneal Dialysis GI Medical History: Reports: Hx Hiatal Hernia, Hx Ulcer Musculoskeletal Medical History: Reports Hx Arthritis, Reports Hx Fibromyalgia Psychiatric Medical History: Reports: Hx Anxiety, Hx Bipolar Disorder, Hx Depression Past Surgical History: Reports: Hx Section, Hx Cholecystectomy - Immunizations Hx Diphtheria, Pertussis, Tetanus Vaccination: Yes Hx Pneumococcal Vaccination: 07/17/15 Physical Exam - Vital signs Vitals: Temp Pulse Resp BP Pulse Ox 97.7 F 63 20 157/113 H 98 08/15/18 08:57 08/15/18 08:57 08/15/18 08:57 08/15/18 08:57 08/15/18 08:57 Course - Vital Signs Vital signs: Temp Pulse Resp BP Pulse Ox 97.7 F 63 20 157/113 H 98 08/15/18 08:57 08/15/18 08:57 08/15/18 08:57 08/15/18 08:57 08/15/18 08:57
[2018-08-15 09:52] LABS: ABSOLUTE BASOPHILS # (AUTO) 0.1 10^3/uL (0.0-0.2); ABSOLUTE EOSINOPHILS # (AUTO) 0.2 10^3/uL (0.0-0.6); ABSOLUTE LYMPHOCYTES (AUTO) 3.8 10^3/uL (0.5-4.7); ABSOLUTE MONOCYTES (AUTO) 0.4 10^3/uL (0.1-1.4); ABSOLUTE NEUT (AUTO) 6.5 10^3/uL (1.7-8.2); BASOPHILS % (AUTO) 0.8 % (0-2); HEMATOCRIT 46.7 % (36.0-47.0); HEMOGLOBIN 16.1 g/dL (12.0-15.5); LYMPHOCYTES % (AUTO) 34.2 % (13-45); MEAN CORPUSCULAR HEMOGLOBIN 31.2 pg (27.0-33.4); MEAN CORPUSCULAR HGB CONC 34.5 g/dL (32.0-36.0); MEAN CORPUSCULAR VOLUME 91 fl (80-97); MONOCYTES % (AUTO) 3.7 % (3-13); PLATELET COUNT 399 10^3/uL (150-450); RED BLOOD COUNT 5.16 10^6/uL (3.72-5.28); RED CELL DISTRIBUTION WIDTH 14.4 % (11.5-14.0); SEGMENTED NEUTROPHILS % (AUTO) 59.3 % (42-78); TOTAL CELLS COUNTED % (AUTO) 100 %
[2018-08-15 10:09] LABS: APPEARANCE,URINE CLEAR; BILIRUBIN,URINE NEGATIVE (NEGATIVE); COLOR,URINE STRAW; GLUCOSE, URINE NEGATIVE (NEGATIVE); KETONES,URINE NEGATIVE (NEGATIVE); LEUKOCYTE ESTERASE,URINE MODERATE (NEGATIVE); NITRITE,URINE NEGATIVE (NEGATIVE); PROTEIN,URINE NEGATIVE (NEGATIVE); URINE SPECIFIC GRAVITY 1.003; UROBILINOGEN,URINE NEGATIVE mg/dL (<2.0)
--- NOTE | 2018-08-15 10:11 | RADIOLOGY REPORT (SQ) ---
EXAM DESCRIPTION: CT LTD RENAL STONE PROTOCOL ON COMPLETED DATE/TIME: 08/15/2018 9:57 am REASON FOR STUDY: Left flank pain COMPARISON: 09/07/2016. TECHNIQUE: CT scan of the abdomen and pelvis performed without intravenous or oral contrast. Images reviewed with lung, soft tissue, and bone windows. Reconstructed coronal and sagittal MPR images revi ewed. All images stored on PACS. All CT scanners at this facility use dose modulation, iterative reconstruction, and/or weight based d osing when appropriate to reduce radiation dose to as low as reasonably achievable (ALARA). [facility]: Dose Right [facility]: CareDose [facility]: Dose Right [facility]: Teradose 4D [facility]: [email or web address] RADIATION DOSE: CT Rad equipment meets quality standard of care and radiation dose reduction techniq ues were employed. CTDIvol: 6.0 mGy. DLP: 317 mGy-cm.mGy. LIMITATIONS: None. FINDINGS: LOWER CHEST: No significant findings. No nodules or infiltrates. NON-CONTRASTED LIVER, SPLEEN, ADRENALS: Evaluation limited by lack of IV contrast. No identified sign ificant masses. PANCREAS: No masses. No peripancreatic inflammatory changes. GALLBLADDER: Surgically absent. RIGHT KIDNEY AND URETER: No suspicious masses. Assessment limited by lack of IV contrast. No signif icant calcifications. No hydronephrosis or hydroureter. LEFT KIDNEY AND URETER: No suspicious masses. Assessment limited by lack of IV contrast. No signifi cant calcifications. No hydronephrosis or hydroureter. AORTA AND RETROPERITONEUM: No aneurysm. No retroperitoneal masses or adenopathy. BOWEL AND PERITONEAL CAVITY: No obvious masses or inflammatory changes. No free fluid. APPENDIX: Normal. PELVIS, BLADDER, AND ABDOMINAL WALL:No abnormal masses. No free fluid. Bladder normal. BONES: No significant findings. OTHER: No other significant finding. IMPRESSION: NO SIGNIFICANT OR ACUTE PROCESS IN THE ABDOMEN OR PELVIS. COMMENT: Quality ID # [id number]: Final reports with documentation of one or more dose reduction techniques (e.g., Automated exposure control, adjustment of the mA and/or kV according to patient size, use of iterative reconstruction technique) TECHNICAL DOCUMENTATION: JOB ID: [id number] [employer]- All Rights Reserved Reading location - IP/workstation name: [email or web address]
[2018-08-15 10:12] LABS: ALANINE AMINOTRANSFERASE 13 U/L (9-52); ALBUMIN 4.1 g/dL (3.5-5.0); ALKALINE PHOSPHATASE 72 U/L (38-126); ANION GAP 11 (5-19); ASPARTATE AMINO TRANSFERASE 13 U/L (14-36); BILIRUBIN,DIRECT 0.2 mg/dL (0.0-0.4); BILIRUBIN,TOTAL 0.4 mg/dL (0.2-1.3); BLOOD UREA NITROGEN 10 mg/dL (7-20); CALCIUM 9.9 mg/dL (8.4-10.2); CARBON DIOXIDE 32 mmol/L (22-30); CHLORIDE 103 mmol/L (98-107); GLUCOSE 76 mg/dL (75-110); LIPASE 172.9 U/L (23-300); POTASSIUM 3.6 mmol/L (3.6-5.0); SODIUM 145.5 mmol/L (137-145); TOTAL PROTEIN 7.1 g/dL (6.3-8.2)
[2018-08-15] MEDS ORDERED: HYDROMORPHONE HCL INJ/PF 2 MG/ML AMPULE IV ONE (10:39)
[2018-08-15] MEDS ORDERED: KETOROLAC TROMETHAMINE INJ/PF 30 MG/1 ML SDV IV ONE (10:39)
--- NOTE | 2018-08-15 10:45 | ER Document Report ---
ED General - General Chief Complaint: Possible Kidney Stone Stated Complaint: FLANK PAIN Time Seen by Provider: 08/15/18 09:13 Mode of Arrival: Ambulatory Information source: Patient, [facility] Records Notes: 48-year-old female with hypertension, COPD, fibromyalgia, bipolar disorder, depression presents with complaint of left flank pain that started 7 hours prior to arrival. Patient states that the pain awoke her from sleep. She describes it as a throbbing constant pain. Patient has had one episode of nausea and vomiting. She denies any dysuria, hematuria, radiation of pain into her abdomen. Patient does have chronic back pain but states this is worse than usual. She does have a history of kidney stones but states that it has been several years. She denies any fever, chills, chest pain, shortness of breath, vaginal discharge. She does not currently take any pain medication. Her last bowel movement was this morning and described as normal in color and caliber. Patient denies any injury to her back. Pain is not exacerbated with movement or relieved with rest. TRAVEL OUTSIDE OF THE [place] IN LAST 30 DAYS: No - HPI Onset: This morning Onset/Duration: Sudden, Persistent, Worse Quality of pain: Achy, Throbbing Severity: Moderate Associated symptoms: Nausea, Vomiting. denies: Chest pain, Diarrhea, Fever, Headache, Shortness of breath, Sweating, Weakness Exacerbated by: Denies Relieved by: Denies Similar symptoms previously: Yes Recently seen / treated by doctor: No - Related Data Allergies/Adverse Reactions: cephalexin Allergy (Severe, Verified 08/15/18 10:33) Hives sulfamethoxazole [From Septra] Allergy (Verified 08/15/18 10:33) trimethoprim [From Septra] Allergy (Verified 08/15/18 10:33) Past Medical History - General Information source: Patient, [facility] Records - Social History Smoking Status: Current Every Day Smoker Cigarette use (# per day): Yes - 20 Chew tobacco use (# tins/day): No Smoking Education Provided: Yes - Smoking cessation counseling was provided for 4 minutes at the bedside Frequency of alcohol use: Occasional Drug Abuse: Marijuana Lives with: Family Family History: Reviewed & Not Pertinent, DM - Mother Patient has suicidal ideation: No Patient has homicidal ideation: No - Past Medical History Cardiac Medical History: Reports: Hx Hypertension Pulmonary Medical History: Reports: Hx COPD Renal/ Medical History: Denies: Hx Peritoneal Dialysis GI Medical History: Reports: Hx Hiatal Hernia, Hx Ulcer Musculoskeletal Medical History: Reports Hx Arthritis, Reports Hx Fibromyalgia Psychiatric Medical History: Reports: Hx Anxiety, Hx Bipolar Disorder, Hx Depression Past Surgical History: Reports: Hx Section, Hx Cholecystectomy - Immunizations Hx Diphtheria, Pertussis, Tetanus Vaccination: Yes Hx Pneumococcal Vaccination: 07/17/15 Review of Systems - Review of Systems Notes: REVIEW OF SYSTEMS: CONSTITUTIONAL : Denies fever, chills, or sweats. Denies recent illness. Denies weight loss, recent hospitalizations. EENT: Denies visual changes, eye pain. Denies sore throat, oral lesions, difficulty swallowing. CARDIOVASCULAR: Denies chest pain. Denies palpitations. Denies lower extremity edema. RESPIRATORY: Denies cough. Denies shortness of breath, wheezing. GASTROINTESTINAL: Denies abdominal pain or distention. Denies diarrhea. Denies blood in vomitus, stools, or per rectum. Denies black, tarry stools. Denies constipation. GENITOURINARY: Denies difficulty urinating, painful urination, frequency, blood in urine, or vaginal discharge. MUSCULOSKELETAL: Denies neck pain or stiffness. Denies joint pain or swelling. SKIN: Denies rash, lesions or sores. HEMATOLOGIC : Denies easy bruising or bleeding. LYMPHATIC: Denies swollen glands. NEUROLOGICAL: Denies confusion or altered mental status. Denies loss of consciousness. Denies dizziness or lightheadedness. Denies headache. Denies weakness or paralysis. Denies problems difficulty with ambulation, slurred speech. Denies sensory loss, numbness, or tingling. Denies seizures. PSYCHIATRIC: Denies anxiety or stress. Denies depression, suicidal ideation, or homicidal ideation. Denies visual or auditory hallucinations. Physical Exam - Vital signs Vitals: Temp Pulse Resp BP Pulse Ox 97.7 F 63 20 157/113 H 98 08/15/18 08:57 08/15/18 08:57 08/15/18 08:57 08/15/18 08:57 08/15/18 08:57 Interpretation: Hypertensive. No: Tachycardic, Febrile - Notes Notes: PHYSICAL EXAMINATION: GENERAL: Moderate distress secondary to pain. Does not appear toxic. HEAD: Atraumatic, normocephalic. EYES: Pupils equal round and reactive to light, extraocular movements intact, conjunctiva are normal. ENT: Nares patent, oropharynx clear without exudates. Moist mucous membranes. NECK: Normal range of motion, supple without lymphadenopathy LUNGS: Breath sounds clear to auscultation bilaterally and equal. No wheezes rales or rhonchi. HEART: Regular rate and rhythm without murmurs ABDOMEN: Soft, nontender, nondistended abdomen. No guarding, no rebound. No masses appreciated. No reproducible CVA tenderness Female : deferred Musculoskeletal: Normal range of motion, no pitting or edema. No cyanosis. No reproducible low back tenderness. No midline tenderness of the lumbar spine. NEUROLOGICAL: Cranial nerves grossly intact. Normal speech, normal gait. Normal sensory, motor exams PSYCH: Tearful. SKIN: Warm, Dry, normal turgor, no rashes or lesions noted. Course - Re-evaluation Re-evalutation: Laboratory 08/15/18 08/15/18 08/15/18 09:35 09:35 09:35 WBC 11.0 H RBC 5.16 Hgb 16.1 H Hct 46.7 MCV 91 MCH 31.2 MCHC 34.5 RDW 14.4 H Plt Count 399 Seg Neutrophils % 59.3 Lymphocytes % 34.2 Monocytes % 3.7 Eosinophils % 2.0 Basophils % 0.8 Absolute Neutrophils 6.5 Absolute Lymphocytes 3.8 Absolute Monocytes 0.4 Absolute Eosinophils 0.2 Absolute Basophils 0.1 Sodium 145.5 H Potassium 3.6 Chloride 103 Carbon Dioxide 32 H Anion Gap 11 BUN 10 Creatinine 0.73 Est GFR ( Amer) > 60 Est GFR (Non-Af Amer) > 60 Glucose 76 Calcium 9.9 Total Bilirubin 0.4 Direct Bilirubin 0.2 Neonat Total Bilirubin Not Reportable Neonat Direct Bilirubin Not Reportable Neonat Indirect Bili Not Reportable AST 13 L ALT 13 Alkaline Phosphatase 72 Total Protein 7.1 Albumin 4.1 Lipase 172.9 Urine Color STRAW Urine Appearance CLEAR Urine pH 6.0 Ur Specific Hawi 1.003 Urine Protein NEGATIVE Urine Glucose (UA) NEGATIVE Urine Ketones NEGATIVE Urine Blood NEGATIVE Urine Nitrite NEGATIVE Urine Bilirubin NEGATIVE Urine Urobilinogen NEGATIVE Ur Leukocyte Esterase MODERATE H Urine WBC (Auto) 13 Urine RBC (Auto) 2 Urine Bacteria (Auto) TRACE Squamous Epi Cells Auto 2 Urine Mucus (Auto) RARE Urine Ascorbic Acid NEGATIVE Limited or Localized CT 08/15/18 09:14 IMPRESSION: NO SIGNIFICANT OR ACUTE PROCESS IN THE ABDOMEN OR PELVIS. 48-year-old female with hypertension, COPD, fibromyalgia, bipolar disorder, depression presents with complaint of left flank pain that started 7 hours prior to arrival. Patient states that the pain awoke her from sleep. She describes it as a throbbing constant pain. Patient has had one episode of nausea and vomiting. She denies any dysuria, hematuria, radiation of pain into her abdomen. Patient does have chronic back pain but states this is worse than usual. She does have a history of kidney stones but states that it has been several years. Vital signs stable upon arrival. Patient is afebrile, normotensive and not hypoxic. She is tearful on exam although I cannot reproduce her left flank pain. CBC shows mild leukocytosis, CMP is without significant electrolyte abnormality and urinalysis shows mild esterase and 13 WBCs. Urine culture pending. Patient did receive 1 mg of IV and Macrobid during her ED course. CT of the abdomen and pelvis was obtained and showed no acute process or evidence of hydronephrosis, urolithiasis. 08/15/18 12:02 Patient reports resolution of her left flank pain. Patient was evaluated and treated as appropriate for the patient's presenting symptoms and complaint, with consideration of any critical or life threatening conditions that may be associated with their obtained history and exam as noted above. All results were discussed with patient. Patient provided the opportunity to ask questions, and express concerns. Patient was educated on treatments based on their presumed diagnosis as noted above. At this time we will discharge the patient with return precautions and follow-up recommendations. Verbal discharge instructions given a the bedside. Medication warnings reviewed. Patient is in agreement with this plan and has verbalized understanding of return precautions. After careful consideration I feel that that patient can be safely discharged from the emergency department, they were advised to followup with a primary care physician in 2-3 days. Dictation on this chart was performed using voice recognition software and may result in unintended grammatical, spelling, syntax or errors. 08/15/18 15:25 Unfortunately patient left without her prescription for Macrobid. I did attempt to call all the numbers we have on file for her including her daughter' s phone number and that none of the films were set up for messaging and no one answered. 08/15/18 15:32 08/15/18 15:32 - Vital Signs Vital signs: Temp Pulse Resp BP Pulse Ox 97.7 F 69 18 138/85 H 98 08/15/18 12:07 08/15/18 12:07 08/15/18 12:07 08/15/18 12:07 08/15/18 12:07 - Laboratory Result Diagrams: 08/15/18 09:35 08/15/18 09:35 Laboratory results interpreted by me: 08/15/18 08/15/18 08/15/18 09:35 09:35 09:35 WBC 11.0 H Hgb 16.1 H RDW 14.4 H Sodium 145.5 H Carbon Dioxide 32 H AST 13 L Ur Leukocyte Esterase MODERATE H - Diagnostic Test Radiology reviewed: Image reviewed, Reports reviewed Discharge - Discharge Clinical Impression: Flank pain, acute, History of fibromyalgia, Elevated blood pressure reading UTI (urinary tract infection) Qualifiers: Urinary tract infection type: site unspecified Hematuria presence: without hematuria Qualified Code(s): N39.0 - Urinary tract infection, site not specified Condition: Good Disposition: HOME, SELF-CARE Instructions: Flank Pain ([facility]), Urinary Tract Infection ([facility]) Additional Instructions: You have been seen in the Emergency Department (ED) today for back pain. Your workup and exam have not shown any acute abnormalities and you are likely suffering from muscle strain or possible problems with your discs, but there is no treatment that will fix your symptoms at this time. Please take the naproxen that has been prescribed as directed. You should also purchase a local lidocaine cream such as "aspercreme with lidocaine" and use per bottle instructions to the affected area. Apply heat to the area as often as you are able. Continue to keep active and avoid prolonged periods of bed rest. Please follow up with your doctor as soon as possible regarding today's ED visit and your back pain. Return to the ED for worsening back pain, fever, weakness or numbness of either leg, or if you develop either (1) an inability to urinate or have bowel movements, or (2) loss of your ability to control your bathroom functions (if you start having "accidents"), or if you develop other new symptoms that concern you.concern you. Prescriptions: Ibuprofen [Motrin 600 Mg Tablet] 600 mg PO TID #15 tablet Nitrofurantoin Monohyd/M-Cryst [Macrobid 100 mg Capsule] 1 tab PO BID #20 capsule Forms: Elevated Blood Pressure
[2018-08-15] MEDS ORDERED: NITROFURANTOIN MONOHYD/M-CRYST 100 MG CAPSULE PO ONE (10:49)
[2018-08-15 12:29] VITALS: BP 138/85
== END 2018-08-15 12:07 | disposition home or self-care (01) ==
LOC: ER 08:53
DX: N39.0 Urinary tract infection, site not specified (principal); R10.9 Unspecified abdominal pain; I10 Essential (primary) hypertension; J44.9 Chronic obstructive pulmonary disease, unspecified; R11.2 Nausea with vomiting, unspecified; M54.9 Dorsalgia, unspecified; G89.29 Other chronic pain; F17.210 Nicotine dependence, cigarettes, uncomplicated
CPT/HCPCS: 99406; 99284; 96374; 96375; 36415; 87086; 83690; 85025; 80053; 81001; 76380; J3010; J1885; J1170; J2405; J8499

== ENCOUNTER 2018-10-22 17:24 | Emergency (ER) | payer SELFPAY ==
[2018-10-22] MEDS ORDERED: PENICILLIN V POTASSIUM 500 MG TABLET PO ONE (19:57)
[2018-10-22] MEDS ORDERED: HYDROCODONE/ACETAMINOPHEN 5-325 MG (6 TAB/ER DISP) PO PRN (19:59)
[2018-10-22] MEDS ORDERED: ALBUTEROL SULFATE HFA (90 MCG/PUFF) 8 GM MDI (1 MDI/ER DISP) IH ONE (20:00)
--- NOTE | 2018-10-22 20:00 | ER Document Report ---
HPI - HPI Time Seen by Provider: 10/22/18 19:32 Pain Level: 4 Context: Patient is a 48-year-old female that comes to the emergency department for chief complaint of pain in her lower jaw mainly on the right side for the past 2 days. She states that she had an area that was swollen, she pressed on it, it popped, she drained pus out. She states that this was earlier today but she still has pain. She denies sore throat, fever. She states she also has an ongoing cough and intermittent wheezing. She is a smoker. She denies shortness of breath, chest pain. She does not currently have a dentist or primary care provider. - REPRODUCTIVE Reproductive: DENIES: : Past Medical History - General Information source: Patient - Social History Smoking Status: Current Every Day Smoker Smoking Education Provided: Yes - <3 min Frequency of alcohol use: None Drug Abuse: None Lives with: Family Family History: Reviewed & Not Pertinent, DM - Mother Patient has suicidal ideation: No Patient has homicidal ideation: No - Past Medical History Cardiac Medical History: Reports: Hx Hypertension Pulmonary Medical History: Reports: Hx COPD Renal/ Medical History: Denies: Hx Peritoneal Dialysis GI Medical History: Reports: Hx Hiatal Hernia, Hx Ulcer Musculoskeletal Medical History: Reports Hx Arthritis, Reports Hx Fibromyalgia Psychiatric Medical History: Reports: Hx Anxiety, Hx Bipolar Disorder, Hx Depression Past Surgical History: Reports: Hx Section, Hx Cholecystectomy - Immunizations Hx Diphtheria, Pertussis, Tetanus Vaccination: Yes Hx Pneumococcal Vaccination: 07/17/15 Vertical Provider Document - CONSTITUTIONAL General Appearance: WD/WN, Thin - INFECTION CONTROL TRAVEL OUTSIDE OF THE [place] IN LAST 30 DAYS: No - HEENT HEENT: Atraumatic, Normocephalic Mouth Diagram: 1 - Very poor dentition with multiple dental caries and decay, there is erythema of the gumline without any induration or fluctuance, no draining purulent material, no other concerning findings noted - NECK Neck: Normal Inspection - RESPIRATORY Respiratory: No Respiratory Distress, Other - A few scattered coarse breath sounds and occasional cough, no overt wheezing, no tachypnea or distress - CARDIOVASCULAR Cardiovascular: Regular Rate, Regular Rhythm - GI/ABDOMEN Gastrointestinal: Abdomen Soft, Abdomen Non-Tender - MUSCULOSKELETAL/EXTREMETIES Musculoskeletal/Extremeties: EDGAR, FROM, Non-Tender - NEURO Level of Consciousness: Awake, Alert, Appropriate - DERM Integumentary: Warm, Dry, No Rash Course - Re-evaluation Re-evalutation: Patient with dental decay and evidence of dental infection without evidence of abscess. Starting on antibiotics, referred to local dentist. Patient asking for inhaler, states she will not be able to afford one at home, she was given a spacer and inhaler from here. No respiratory distress or concerning respiratory abnormalities on her examination here. Discussed follow-up and return precautions. Patient and significant other state understanding and agreement. - Vital Signs Vital signs: Temp Pulse Resp BP Pulse Ox 98.9 F 82 18 139/87 H 94 10/22/18 17:30 10/22/18 17:30 10/22/18 17:30 10/22/18 17:30 10/22/18 17:30 Discharge - Discharge Clinical Impression: Pain, dental, Dental infection, Tobacco abuse, Cough Condition: Stable Disposition: HOME, SELF-CARE Additional Instructions: Take antibiotics as prescribed to completion for dental infection. You most likely will need multiple extractions, follow-up with the dental referral listed below or this will continue to happen. Stop smoking. Use inhaler as needed for cough/wheeze. Follow-up with primary care. See referral for this as well. Return to the emergency department for any concerning or worsening symptoms including facial swelling, fever, difficulty breathing, or any other concerning or worsening symptoms. [facility] [address], [address] Prescriptions: Penicillin V Potassium [Penicillin Vk 500 mg Tablet] 500 mg PO BID #20 tablet Forms: Smoking Cessation Education Referrals: [facility] [Provider Group] - Follow up as needed
[2018-10-22 20:17] VITALS: BP 135/79
== END 2018-10-22 20:17 | disposition home or self-care (01) ==
LOC: ER 17:24
DX: K04.7 Periapical abscess without sinus (principal); K02.9 Dental caries, unspecified; K08.89 Other specified disorders of teeth and supporting structures; R05 Cough; F17.200 Nicotine dependence, unspecified, uncomplicated; J44.9 Chronic obstructive pulmonary disease, unspecified; I10 Essential (primary) hypertension
CPT/HCPCS: 99282; J3490

== ENCOUNTER 2018-12-17 13:37 | Emergency (ER) | payer SELFPAY ==
--- NOTE | 2018-12-17 14:08 | ER Document Report ---
ED Medical Screen (RME) - General Chief Complaint: Accidental Overdose Stated Complaint: ABDOMINAL PAIN Time Seen by Provider: 12/17/18 13:55 Mode of Arrival: Wheelchair Information source: Patient TRAVEL OUTSIDE OF THE [place] IN LAST 30 DAYS: No - HPI Patient complains to provider of: accidental ingestion Onset: Just prior to arrival - pt. drank from soda can which contained bleach -- now with burning pain in stomach. Denies SI. Poison control contacted -- recommends endoscopy. - Related Data Allergies/Adverse Reactions: cephalexin Allergy (Severe, Verified 12/17/18 13:39) Hives sulfamethoxazole [From ] Allergy (Verified 12/17/18 13:39) trimethoprim [From ] Allergy (Verified 12/17/18 13:39) Past Medical History - Past Medical History Cardiac Medical History: Reports: Hx Hypertension Pulmonary Medical History: Reports: Hx COPD Renal/ Medical History: Denies: Hx Peritoneal Dialysis GI Medical History: Reports: Hx Hiatal Hernia, Hx Ulcer Musculoskeltal Medical History: Reports Hx Arthritis, Reports Hx Fibromyalgia Psychiatric Medical History: Reports: Hx Anxiety, Hx Bipolar Disorder, Hx Depression Past Surgical History: Reports: Hx Section, Hx Cholecystectomy - Immunizations Hx Diphtheria, Pertussis, Tetanus Vaccination: Yes Physical Exam - Vital signs Vitals: Temp Pulse Resp BP Pulse Ox 97.8 F 91 20 148/90 H 100 12/17/18 13:43 12/17/18 13:43 12/17/18 13:43 12/17/18 13:43 12/17/18 13:43 Course - Vital Signs Vital signs: Temp Pulse Resp BP Pulse Ox 97.8 F 91 20 148/90 H 100 12/17/18 13:43 12/17/18 13:43 12/17/18 13:43 12/17/18 13:43 12/17/18 13:43
[2018-12-17 14:22] LABS: ABSOLUTE BASOPHILS # (AUTO) 0.1 10^3/uL (0.0-0.2); ABSOLUTE EOSINOPHILS # (AUTO) 0.2 10^3/uL (0.0-0.6); ABSOLUTE LYMPHOCYTES (AUTO) 1.3 10^3/uL (0.5-4.7); ABSOLUTE MONOCYTES (AUTO) 0.4 10^3/uL (0.1-1.4); ABSOLUTE NEUT (AUTO) 13.6 10^3/uL (1.7-8.2); BASOPHILS % (AUTO) 0.4 % (0-2); HEMATOCRIT 48.7 % (36.0-47.0); HEMOGLOBIN 17.1 g/dL (12.0-15.5); LYMPHOCYTES % (AUTO) 8.4 % (13-45); MEAN CORPUSCULAR HEMOGLOBIN 30.7 pg (27.0-33.4); MEAN CORPUSCULAR HGB CONC 35.2 g/dL (32.0-36.0); MEAN CORPUSCULAR VOLUME 87 fl (80-97); MONOCYTES % (AUTO) 2.8 % (3-13); RED BLOOD COUNT 5.59 10^6/uL (3.72-5.28); SEGMENTED NEUTROPHILS % (AUTO) 87.4 % (42-78); TOTAL CELLS COUNTED % (AUTO) 100 %; WHITE BLOOD COUNT 15.6 10^3/uL (4.0-10.5)
--- NOTE | 2018-12-17 14:28 | ER Document Report ---
ED General - General Chief Complaint: Accidental Overdose Stated Complaint: ABDOMINAL PAIN Time Seen by Provider: 12/17/18 13:55 Mode of Arrival: Ambulatory Information source: Patient Notes: This is a 48-year-old female that is coming in with nausea, vomiting, abdominal pain after inadvertently drinking a combination of bleach and mean green. Patient states she was at her sister's house and she saw a bottle of soda and she drank a soda as soon as she swallowed the soda ("gulp"), she had abdominal discomfort and asked her sister what it was and her sisters baby said that "I made a drink with cleaning agents". The cleaning agents happened to be bleach and mean green. Patient states she did try and have a piece of bread and some PediaSure after that but vomited immediately and has had episodic nausea vomiting and severe abdominal cramping since that time. Past medical history includes COPD (1 pack/day smoker), esophageal and gastric ulcers, fibromyalgia and rheumatoid arthritis. Medicines: Currently none TRAVEL OUTSIDE OF THE [place] IN LAST 30 DAYS: No - HPI Onset: This morning Onset/Duration: Sudden Quality of pain: Dull Severity: Severe Pain Level: 4 Associated symptoms: Nausea, Vomiting, Other - Abdominal pain. denies: Chest pain, Fever, Shortness of breath Exacerbated by: Denies Relieved by: Denies Similar symptoms previously: No Recently seen / treated by doctor: No - Related Data Allergies/Adverse Reactions: cephalexin Allergy (Severe, Verified 12/17/18 13:39) Hives sulfamethoxazole [From Septra] Allergy (Verified 12/17/18 13:39) trimethoprim [From Septra] Allergy (Verified 12/17/18 13:39) Past Medical History - General Information source: Patient - Social History Smoking Status: Current Every Day Smoker Cigarette use (# per day): Yes - 1 pack/day Chew tobacco use (# tins/day): No Frequency of alcohol use: None Drug Abuse: None Lives with: Spouse/Significant other Family History: Reviewed & Not Pertinent, DM - Mother Patient has suicidal ideation: No Patient has homicidal ideation: No - Past Medical History Cardiac Medical History: Reports: Hx Hypertension Pulmonary Medical History: Reports: Hx COPD Renal/ Medical History: Denies: Hx Peritoneal Dialysis GI Medical History: Reports: Hx Hiatal Hernia, Hx Ulcer Musculoskeletal Medical History: Reports Hx Arthritis, Reports Hx Fibromyalgia Psychiatric Medical History: Reports: Hx Anxiety, Hx Bipolar Disorder, Hx Depression Past Surgical History: Reports: Hx Section, Hx Cholecystectomy - Immunizations Hx Diphtheria, Pertussis, Tetanus Vaccination: Yes Hx Pneumococcal Vaccination: 07/17/15 Review of Systems - Review of Systems Constitutional: denies: Chills, Fever EENT: No symptoms reported Cardiovascular: No symptoms reported Respiratory: No symptoms reported Gastrointestinal: See HPI Genitourinary: No symptoms reported Female Genitourinary: No symptoms reported Musculoskeletal: No symptoms reported Skin: No symptoms reported Hematologic/Lymphatic: No symptoms reported Neurological/Psychological: No symptoms reported Physical Exam - Vital signs Vitals: Temp Pulse Resp BP Pulse Ox 97.8 F 91 20 148/90 H 100 12/17/18 13:43 12/17/18 13:43 12/17/18 13:43 12/17/18 13:43 12/17/18 13:43 Notes: Physical exam: GENERAL: She is a 48-year-old female, alert and oriented x3, she does appear uncomfortable. He is writhing in discomfort. HEAD: Atraumatic, normocephalic. EYES: Pupils equal round and reactive to light, extraocular movements intact, sclera anicteric, conjunctiva are normal. ENT: TMs normal, nares patent, oropharynx clear without exudates. Moist mucous membranes. I do not see any oral luna. NECK: Normal range of motion, supple without obvious mass or JVD. LUNGS: Breath sounds clear to auscultation bilaterally and equal. No wheezes rales or rhonchi. HEART: Regular rate and rhythm without murmurs, rubs or gallops. ABDOMEN: Soft, hyperactive bowel sounds. No tenderness to palpation. No guarding, no rebound. No masses appreciated. EXTREMITIES: Normal range of motion, no pitting or edema. No clubbing or cyanosis. NEUROLOGICAL: Cranial nerves II through XII grossly intact. Normal speech, moving all extremities. PSYCH: Normal mood, normal affect. SKIN: Warm, Dry, normal turgor, no rashes or lesions noted. Course - Re-evaluation Re-evalutation: 12/17/18 14:27 Ingestion Midnight Discussed with poison control: Bleech & Mean Green are alkaline caustics. Their recommendations are as follows: NPO, labs, fluids, GI evaluation for EGD (Transfer if no GI). 12/17/18 14:28 12/17/18 14:29 12/17/18 18:34 Patient stable currently. Transport should be here shortly. 12/17/18 23:15 - Vital Signs Vital signs: Temp Pulse Resp BP Pulse Ox 98.3 F 91 21 H 124/78 95 12/17/18 18:37 12/17/18 13:43 12/17/18 18:28 12/17/18 18:28 12/17/18 18:28 - Laboratory Result Diagrams: 12/17/18 13:55 12/17/18 13:55 Laboratory results interpreted by me: 12/17/18 12/17/18 12/17/18 13:55 13:55 15:35 WBC 15.6 H RBC 5.59 H Hgb 17.1 H Hct 48.7 H Seg Neutrophils % 87.4 H Lymphocytes % 8.4 L Monocytes % 2.8 L Absolute Neutrophils 13.6 H Glucose 151 H Calcium 11.0 H Albumin 5.2 H Urine Blood MODERATE H Acetaminophen < 10 L - Diagnostic Test Radiology reviewed: Image reviewed, Reports reviewed - Chest x-ray was clear - EKG Interpretation by Me Rate: Normal Rhythm: NSR - EKG shows normal sinus rhythm with a ventricular rate of 78, no acute ST-T wave changes Critical Care Note - Critical Care Note Total time excluding time spent on procedures (mins): 60 Discharge - Discharge Clinical Impression: Caustic ingestion Condition: Stable Disposition: [facility]
[2018-12-17] MEDS ORDERED: RINGERS SOLUTION,LACTATED 1,000 ML IV ONE (14:31)
[2018-12-17] MEDS ORDERED: PANTOPRAZOLE SODIUM 40 MG VIAL IV ONE (14:32)
[2018-12-17] MEDS ORDERED: MORPHINE SULFATE 10 MG/ML INJ IV ONE ×2 (14:32→16:11)
[2018-12-17] MEDS ORDERED: ONDANSETRON HCL INJ/PF 4 MG/2 ML SDV IV ONE (14:32)
[2018-12-17 14:36] LABS: INTERNATIONAL RATION (INR) 0.84; PROTHROMBIN TIME 11.9 SEC (11.4-15.4)
[2018-12-17 14:37] LABS: ALANINE AMINOTRANSFERASE 22 U/L (9-52); ALBUMIN 5.2 g/dL (3.5-5.0); ALKALINE PHOSPHATASE 83 U/L (38-126); ANION GAP 11 (5-19); ASPARTATE AMINO TRANSFERASE 19 U/L (14-36); BILIRUBIN,DIRECT 0.2 mg/dL (0.0-0.4); BILIRUBIN,TOTAL 0.9 mg/dL (0.2-1.3); BLOOD UREA NITROGEN 11 mg/dL (7-20); CARBON DIOXIDE 30 mmol/L (22-30); CHLORIDE 100 mmol/L (98-107); GLUCOSE 151 mg/dL (75-110); SODIUM 141.3 mmol/L (137-145); TOTAL PROTEIN 8.2 g/dL (6.3-8.2)
[2018-12-17 14:40] LABS: ACETAMINOPHEN < 10 ug/mL (10-30)
[2018-12-17 14:50] LABS: PLATELET COUNT 199 10^3/uL (150-450)
--- NOTE | 2018-12-17 15:05 | RADIOLOGY REPORT (SQ) ---
EXAM DESCRIPTION: KUB/ABDOMEN (SINGLE VIEW) COMPLETED DATE/TIME: 12/17/2018 2:47 pm REASON FOR STUDY: abd pain COMPARISON: None. NUMBER OF VIEWS: One view. TECHNIQUE: Supine radiographic image of the abdomen acquired. LIMITATIONS: None. FINDINGS: BOWEL GAS PATTERN: Normal bowel gas pattern. No dilated loops. CALCIFICATIONS: No suspicious calcifications. SOFT TISSUES: No gross mass or suggestion of organomegaly. HARDWARE: None in the abdomen. BONES: No acute fracture. No worrisome bone lesions. OTHER: No other significant finding. IMPRESSION: NO RADIOGRAPHIC EVIDENCE FOR ACUTE ABDOMINAL DISEASE. TECHNICAL DOCUMENTATION: JOB ID: [id number] [employer]- All Rights Reserved Reading location - IP/workstation name: [email or web address]
--- NOTE | 2018-12-17 15:05 | RADIOLOGY REPORT (SQ) ---
EXAM DESCRIPTION: CHEST SINGLE VIEW COMPLETED DATE/TIME: 12/17/2018 2:47 pm REASON FOR STUDY: abd pain COMPARISON: 08/28/2016 EXAM PARAMETERS: NUMBER OF VIEWS: One view. TECHNIQUE: Single frontal radiographic view of the chest acquired. RADIATION DOSE: NA LIMITATIONS: None. FINDINGS: LUNGS AND PLEURA: No opacities, masses or pneumothorax. No pleural effusion. MEDIASTINUM AND HILAR STRUCTURES: No masses. Contour normal. HEART AND VASCULAR STRUCTURES: Heart normal in size. Normal vasculature. BONES: No acute findings. HARDWARE: None in the chest. OTHER: No other significant finding. IMPRESSION: NO ACUTE RADIOGRAPHIC FINDING IN THE CHEST. TECHNICAL DOCUMENTATION: JOB ID: [id number] [employer]- All Rights Reserved Reading location - IP/workstation name: [email or web address]
[2018-12-17 16:24] LABS: APPEARANCE,URINE CLEAR; BILIRUBIN,URINE NEGATIVE (NEGATIVE); COLOR,URINE YELLOW; GLUCOSE, URINE NEGATIVE (NEGATIVE); KETONES,URINE NEGATIVE (NEGATIVE); LEUKOCYTE ESTERASE,URINE NEGATIVE (NEGATIVE); NITRITE,URINE NEGATIVE (NEGATIVE); PROTEIN,URINE NEGATIVE (NEGATIVE); URINE SPECIFIC GRAVITY 1.006; UROBILINOGEN,URINE NEGATIVE mg/dL (<2.0)
[2018-12-17] MEDS ORDERED: DIPHENHYDRAMINE HCL 50 MG/ML VIAL IV ONE (17:04)
[2018-12-17] MEDS ORDERED: HYDROMORPHONE HCL INJ/PF 2 MG/ML AMPULE IV ONE (17:32)
[2018-12-17] MEDS ORDERED: NORMAL SALINE 1000 ML 1,000 ML IV ONE (17:32)
[2018-12-17 18:36] VITALS: BP 124/78
--- NOTE | 2018-12-17 22:55 | EKG REPORT ---
SEVERITY:- ABNORMAL ECG - SINUS RHYTHM PROBABLE INFERIOR INFARCT, AGE INDETERMINATE : Confirmed by: Dimas Torres 17-Dec-2018 22:54:23
== END 2018-12-18 18:59 | disposition short-term general hospital (02) ==
LOC: ER 13:37
DX: T54.91XA Toxic effect of unspecified corrosive substance, accidental (unintentional), initial encounter (principal); T65.891A Toxic effect of other specified substances, accidental (unintentional), initial encounter; R11.2 Nausea with vomiting, unspecified; R10.9 Unspecified abdominal pain; Y92.009 Unspecified place in unspecified non-institutional (private) residence as the place of occurrence of the external cause; J44.9 Chronic obstructive pulmonary disease, unspecified; F17.210 Nicotine dependence, cigarettes, uncomplicated; I10 Essential (primary) hypertension; Z88.1 Allergy status to other antibiotic agents
CPT/HCPCS: 93005; 96376; 99291; 96361; 96374; 96375; 36415; 80307; 85025; 85610; 80053; 81001; 71045; 74018; 93010; J1200; J2270; J1170; S0164; J2405; J7030; J7120

== ENCOUNTER 2019-04-19 18:46 | Emergency (ER) | payer SELFPAY ==
--- NOTE | 2019-04-19 19:11 | ER Document Report ---
HPI - HPI Patient complains to provider of: Dental pain Time Seen by Provider: 04/19/19 19:10 Onset: Other Onset/Duration: Persistent Quality of pain: Achy, Throbbing Severity: Severe Pain Level: 5 Context: Patient presents emergency department with complaints of dental pain for the 4 days. Reports it hurts so bad that she pulled one tooth out and tried to pull another tooth out but it is dangling. She reports she cannot get into the [facility] until next Tuesday. #29 dangling in her mouth. Patient has widespread dental decay. Complains of pain but denies other symptoms such as fever vomiting diarrhea. Associated Symptoms: None Exacerbated by: Denies Relieved by: Denies Similar symptoms previously: Yes Recently seen / treated by doctor: No - REPRODUCTIVE Reproductive: DENIES: : Past Medical History - General Information source: Patient - Social History Smoking Status: Current Every Day Smoker Cigarette use (# per day): Yes Frequency of alcohol use: None Drug Abuse: None Family History: Reviewed & Not Pertinent, DM - Mother Patient has suicidal ideation: No Patient has homicidal ideation: No - Past Medical History Cardiac Medical History: Reports: Hx Hypertension Pulmonary Medical History: Reports: Hx COPD Renal/ Medical History: Denies: Hx Peritoneal Dialysis GI Medical History: Reports: Hx Hiatal Hernia, Hx Ulcer Musculoskeletal Medical History: Reports Hx Arthritis, Reports Hx Fibromyalgia Psychiatric Medical History: Reports: Hx Anxiety, Hx Bipolar Disorder, Hx Depression Past Surgical History: Reports: Hx Section, Hx Cholecystectomy - Immunizations Hx Diphtheria, Pertussis, Tetanus Vaccination: Yes Hx Pneumococcal Vaccination: 07/17/15 Vertical Provider Document - CONSTITUTIONAL Agree With Documented VS: Yes Exam Limitations: No Limitations General Appearance: WD/WN, Mild Distress - INFECTION CONTROL TRAVEL OUTSIDE OF THE [place] IN LAST 30 DAYS: No - HEENT HEENT: Atraumatic, Normocephalic Mouth Diagram: 1 - tooth dangling , opens mouth wide, c/o severe pain, Course - Re-evaluation Re-evalutation: 04/19/19 19:29 Dr. Roach consulted. He assessed patient. worries since tooth is dangling it may fall out and she may aspirate it. He advises x-ray and set up for tooth extraction 04/19/19 20:[address] X-[address] raoch in to pull tooth 04/19/19 20:32 Patient refused to have the tooth removed. She was instructed on potential for her to aspirate the tooth. She was advised to follow-up with the dentist on Tuesday. She was also prescribed clindamycin pain medication. She verbalized understanding to all instructions AMA form thought side The patient has decided not to proceed with further recommended testing or treatment to determine the cause of their symptoms. The risks and alternatives to the recommendations were discussed and the patient was understanding. The patient appears clinically to have the capacity to make this decision. Patient was instructed that he/she could return to the emergency department at any time to complete the testing treatment. Dictation of this chart was performed using voice recognition software; therefore, there may be some unintended grammatical errors. - Vital Signs Vital signs: Temp Pulse Resp BP Pulse Ox 98.8 F 84 16 131/88 H 96 04/19/19 18:58 04/19/19 18:58 04/19/19 18:58 04/19/19 18:58 04/19/19 18:58 - Diagnostic Test Radiology reviewed: Image reviewed, Reports reviewed - neg. mandible Discharge - Discharge Clinical Impression: Pain, dental Condition: Stable Disposition: AGAINST MEDICAL ADVICE Instructions: [facility], Oral Narcotic Medication (OM), Penicillin V K (OM), Toothache (OM) Additional Instructions: *You have been evaluated for dental pain *Take medications as prescribed *Follow up with a dentist Tuesday *Return to ED for worsening condition, changes, needs Prescriptions: Clindamycin HCl [Cleocin 300 mg Capsule] 300 mg PO QID #20 capsule Oxycodone HCl/Acetaminophen [Percocet 5-325 mg Tablet] 1 tab PO ASDIR PRN #10 tablet PRN Reason:
[2019-04-19] MEDS ORDERED: LIDOCAINE 1% INJ (10 MG/ML) 10 ML MDV INJ ONE (19:27)
--- NOTE | 2019-04-19 19:57 | RADIOLOGY REPORT (SQ) ---
EXAM DESCRIPTION: MANDIBLE 4 VIEWS OR MORE COMPLETED DATE/TIME: 04/19/2019 7:46 pm REASON FOR STUDY: dental injury COMPARISON: None. NUMBER OF VIEWS: Four view. TECHNIQUE: Images of the mandible acquired. AP, Lloly's, angled right, angled left mandible images. LIMITATIONS: None. FINDINGS: MANDIBLE: No acute fracture. No disruption of the right or left temporomandibular joints. ORBITS: No fracture. No foreign body. SINUSES: No mucosal thickening. No air fluid levels. FACIAL BONES: No fracture. OTHER: No other significant finding. IMPRESSION: NO ACUTE FRACTURE OR MALALIGNMENT. TECHNICAL DOCUMENTATION: JOB ID: [id number] [employer]- All Rights Reserved Reading location - IP/workstation name: [email or web address]
[2019-04-19] MEDS ORDERED: OXYCODONE-ACETAMINOPHEN 5-325 MG TABLET PO ONE (20:24)
[2019-04-19] MEDS ORDERED: CLINDAMYCIN HCL 150 MG CAPSULE PO ONE (20:24)
--- NOTE | 2019-04-19 20:30 | ER Document Report ---
ED Oral Problem - General Chief Complaint: Toothache Stated Complaint: TOOTHACHE Time Seen by Provider: 04/19/19 19:10 Notes: I was asked to evaluate the patient in room 33 for a dangling tooth. Patient wanted to mandible x-rays that was ordered. X-ray was unremarkable with exception of her dental issues which we can see with the naked eye. I attempted to inject the gumline to give her some pain relief for dental extraction however patient refused to let me continue because the needle was too sharp and it hurt. At that time I abandoned the procedure. I did not attempt to pull on the tooth at all. I probably got less than 1 cc of lidocaine injected into the gumline before patient stated that she no longer wanted the procedure done. TRAVEL OUTSIDE OF THE [place] IN LAST 30 DAYS: No - Related Data Allergies/Adverse Reactions: cephalexin Allergy (Severe, Verified 04/19/19 18:52) Hives sulfamethoxazole [From Junra] Allergy (Verified 04/19/19 18:52) trimethoprim [From Junra] Allergy (Verified 04/19/19 18:52) Past Medical History - General Information source: Patient - Social History Smoking Status: Current Every Day Smoker Cigarette use (# per day): Yes Frequency of alcohol use: None Drug Abuse: None Family History: Reviewed & Not Pertinent, DM - Mother Patient has suicidal ideation: No Patient has homicidal ideation: No - Past Medical History Cardiac Medical History: Reports: Hx Hypertension Pulmonary Medical History: Reports: Hx COPD Renal/ Medical History: Denies: Hx Peritoneal Dialysis GI Medical History: Reports: Hx Hiatal Hernia, Hx Ulcer Musculoskeletal Medical History: Reports Hx Arthritis, Reports Hx Fibromyalgia Psychiatric Medical History: Reports: Hx Anxiety, Hx Bipolar Disorder, Hx Depression Past Surgical History: Reports: Hx Section, Hx Cholecystectomy - Immunizations Hx Diphtheria, Pertussis, Tetanus Vaccination: Yes Hx Pneumococcal Vaccination: 07/17/15 Physical Exam - Vital signs Vitals: Temp Pulse Resp BP Pulse Ox 98.8 F 84 16 131/88 H 96 04/19/19 18:58 04/19/19 18:58 04/19/19 18:58 04/19/19 18:58 04/19/19 18:58 Course - Vital Signs Vital signs: Temp Pulse Resp BP Pulse Ox 98.5 F 86 16 111/76 100 04/19/19 19:45 04/19/19 19:45 04/19/19 19:45 04/19/19 19:45 04/19/19 19:45 Discharge - Discharge Clinical Impression: Pain, dental, tooth extraction Condition: Stable Disposition: HOME, SELF-CARE Instructions: [facility], Penicillin V K ([facility]), Toothache ([facility]) Additional Instructions: *You have been evaluated for dental pain, tooth extraction *Take medications as prescribed *Follow up with a dentist within one week *Return to ED for worsening condition, changes, needs
[2019-04-19 20:52] VITALS: BP 127/89
== END 2019-04-19 19:45 | disposition left against medical advice (07) ==
LOC: ER 18:46
DX: K08.9 Disorder of teeth and supporting structures, unspecified (principal); F17.210 Nicotine dependence, cigarettes, uncomplicated; I10 Essential (primary) hypertension; J44.9 Chronic obstructive pulmonary disease, unspecified; Z88.3 Allergy status to other anti-infective agents; Z90.49 Acquired absence of other specified parts of digestive tract
CPT/HCPCS: 70110; 99283

== ENCOUNTER 2019-05-04 14:35 | Emergency (ER) | payer SELFPAY ==
[2019-05-04] MEDS ORDERED: KETOROLAC TROMETHAMINE 60 MG/2 ML SDV IM ONE (16:40)
[2019-05-04] MEDS ORDERED: ALPRAZOLAM 0.5 MG TABLET PO ONE (16:40)
--- NOTE | 2019-05-04 16:42 | ER Document Report ---
HPI - HPI Time Seen by Provider: 05/04/19 16:39 Pain Level: 3 Notes: Patient is a 49-year-old female with a history of bipolar, anxiety, depression, fibromyalgia, rheumatoid arthritis who presents complaining of b/l knee pains secondary to flare up of her fibro and rheumatoid over the past couple days and flare up of her anxiety. Patient states that she is currently not on any medications. She recently became homeless and has been living near [facility] and at the alf for the past 2 days. Patient states that her body aches began around that time. Patient states that she does not do well with sudden change and has had a flareup of anxiety. She has no SI or HI. Patient states that she does have chronic issues with cutting her arms, but only because she is in pain and not to take her life. Patient states that this is been ongoing for the past 30 years. Patient states that she does not want to speak with our counseling as she has an appointment on Tuesday with a mental health provider. She is otherwise able to eat and drink without difficulty. She is urinating normally and having normal bowel movements. Patient states that she is experienced all of the symptoms frequently in the past. Denies any headache, fever, neck pain, changes in vision/speech/mentation/hearing, URI, sore throat, chest pain, palpitations, syncope, cough, shortness of breath, wheeze, dyspnea, abdominal pain, nausea/vomiting/diarrhea, urinary retention, dysuria, hematuria, loss of control of bowel or bladder, numbness/tingling, muscle paralysis, or rash. - ROS Systems Reviewed and Negative: Yes All other systems reviewed and negative - REPRODUCTIVE Reproductive: DENIES: : Past Medical History - Social History Smoking Status: Unknown if Ever Smoked Family History: Reviewed & Not Pertinent, DM - Mother - Past Medical History Cardiac Medical History: Reports: Hx Hypertension Pulmonary Medical History: Reports: Hx COPD Renal/ Medical History: Denies: Hx Peritoneal Dialysis GI Medical History: Reports: Hx Hiatal Hernia, Hx Ulcer Musculoskeletal Medical History: Reports Hx Arthritis, Reports Hx Fibromyalgia Psychiatric Medical History: Reports: Hx Anxiety, Hx Bipolar Disorder, Hx Depression Past Surgical History: Reports: Hx Section, Hx Cholecystectomy - Immunizations Hx Diphtheria, Pertussis, Tetanus Vaccination: Yes Hx Pneumococcal Vaccination: 07/17/15 Vertical Provider Document - CONSTITUTIONAL Agree With Documented VS: Yes Notes: PHYSICAL EXAMINATION: GENERAL: Well-appearing, well-nourished and in no acute distress. A&Ox4. Answers questions appropriately. HEAD: Atraumatic, normocephalic. Non-tender. EYES: Pupils equal round and reactive to light, extraocular movements intact, sclera anicteric, conjunctiva are normal. No nystagmus. ENT: Nares patent and without discharge. oropharynx clear without exudates. No tonsilar hypertrophy or erythema. Moist mucous membranes. NECK: Normal range of motion, supple without lymphadenopathy. No rigidity/meningismus. No midline tenderness. LUNGS: Breath sounds clear to auscultation bilaterally and equal. No wheezes rales or rhonchi. HEART: Regular rate and rhythm without murmurs, rubs, gallops. Musculoskeletal: Ext's/joints b/l: FROM to passive/active. Strength 5+/5. No deficits noted. No bony tenderness of extremities. No erythema, effusion, ecchymosis, or deformity. Extremities: No cyanosis, clubbing, or edema b/l. Peripheral pulses 2+. Capillary refill less than 2 seconds. NEUROLOGICAL: NIH 0. GCS 15. Cranial nerves grossly intact. Normal speech, normal gait. Normal sensory, motor exams. PSYCH: anxious SKIN: Warm, Dry, normal turgor, no rashes or lesions noted. - INFECTION CONTROL TRAVEL OUTSIDE OF THE [place] IN LAST 30 DAYS: No Course - Re-evaluation Re-evalutation: 05/04/19 16:48 Patient is an afebrile, well-hydrated, 49-year-old female who presents with flareup of her anxiety and rheumatoid/fibromyalgia. Vitals are acceptable without significant tachycardia, tachypnea, or hypoxia. PE is otherwise unremarkable for any neurovascular demise, obvious tendon/leg rupture, obvious fracture/dislocation, septic joint. Patient is nontoxic-appearing and is tolerating p.o. without difficulty. No SI/HI. Patient does not want any evaluation by our psychology team today. Reviewed with patient that I will not be sent home with any controlled prescription/medication which she is understandable of. I did give her a small dose of Xanax today as well as Toradol IM. I will send her home with prescription for a steroid taper. Low suspicion for any systemic emergent condition at this time. No further work-up warranted. Recheck with your mental health provider on Tuesday as scheduled. Return to the ED with any other worsening/concerning symptoms. Patient is in agreement. - Vital Signs Vital signs: Temp Pulse Resp BP Pulse Ox 98.3 F 89 18 137/89 H 97 05/04/19 14:42 05/04/19 14:42 05/04/19 14:42 05/04/19 14:42 05/04/19 14:42 Discharge - Discharge Clinical Impression: Anxiety Bilateral knee pain Qualifiers: Chronicity: acute Qualified Code(s): M25.561 - Pain in right knee Condition: Stable Disposition: HOME, SELF-CARE Instructions: Anxiety ([facility]) Additional Instructions: Rest, Ice, Compression, Elevation Tylenol/ibuprofen as needed Light stretches daily Strength exercises as able Moist heat and massage may help F/u with your PCP in 3-5 days for a recheck Keep appointment with mental health specialist on Tuesday Consider consult(s) with Orthopedics/physical therapy for ongoing/worsening symptoms Return to the ED with any worsening symptoms and/or development of fever, headache, chest pain, palpitations, syncope, shortness of breath, trouble breathing, abdominal pain, n/v/d, muscle weakness/paralysis, numbness/tingling, swelling, redness, or other worsening symptoms that are concerning to you. Prescriptions: Hydroxyzine Pamoate [Vistaril 25 mg Capsule] 25 mg PO TID PRN #15 capsule PRN Reason: Prednisone [Deltasone 10 mg Tablet] 10 mg PO DAILY #18 tablet Forms: Elevated Blood Pressure Referrals: [facility] [Provider Group] - Follow up as needed [facility] [Provider Group] - Follow up as needed
[2019-05-04 16:50] VITALS: BP 134/91
== END 2019-05-04 16:52 | disposition home or self-care (01) ==
LOC: ER 14:35
DX: M25.561 Pain in right knee (principal); M25.562 Pain in left knee; F41.9 Anxiety disorder, unspecified; F32.9 Major depressive disorder, single episode, unspecified; M79.7 Fibromyalgia; I10 Essential (primary) hypertension; J44.9 Chronic obstructive pulmonary disease, unspecified
CPT/HCPCS: 99283; 96372; J1885